=== PATIENT | male | born 1965 | race African-American/Black ===

== ENCOUNTER 2023-10-05 19:34 | Emergency (ER) | payer OTHER, MEDICAID, SELFPAY ==
--- NOTE | ~2023-10-05 | XR_ITS ---
EXAMINATION: XR CHEST CLINICAL INFORMATION: Left flank pain. Diminished lung sounds. Cough COMPARISON: None available. TECHNIQUE: 2 views of the chest were obtained. FINDINGS: No significant abnormality is noted involving the heart, lungs, mediastinum, bony thorax or soft tissues. XR/XR chest 2V IMPRESSION: Unremarkable examination.
--- NOTE | ~2023-10-05 | CT_ITS ---
EXAMINATION: CT ABDOMEN AND PELVIS WITHOUT CONTRAST CLINICAL INFORMATION: Left flank pain and dysuria COMPARISON: None available. TECHNIQUE: Multidetector volumetric imaging was performed from the superior aspect of the liver through the pubic symphysis. Sagittal and coronal reformatted images were obtained on the technologist's workstation. This CT examination was performed using dose optimization techniques as appropriate, variously including the following: *Automated exposure control *Adjustment of mA and/or kV according to patient size (this includes techniques or standardized protocols for targeted exams where dose is matched to indication/reason for exam; i.e. extremities or head) *Use of iterative reconstruction technique DLP: 507 mGy-cm FINDINGS: LUNG BASES: The visualized lung bases are unremarkable. Prominent retrocrural varices are noted on the right. LIVER, GALLBLADDER, AND BILIARY TREE: The liver is normal in size, shape, and attenuation. No focal hepatic lesion or biliary ductal dilatation is present. The gallbladder is contracted and contains multiple small gallstones without obvious pericholecystic inflammatory changes. PANCREAS: Unremarkable. SPLEEN: Unremarkable. ADRENAL GLANDS: Unremarkable. KIDNEYS AND URETERS: The kidneys are normal in size, shape, and attenuation. There is a nonobstructing calculus seen in the mid left kidney measuring about 3.5 mm in size. No hydronephrosis, hydroureter, or calculi seen. No perinephric stranding. A benign mid left renal 1.6 cm Bosniak class I renal cyst is noted which requires no additional imaging or follow up. No solid renal masses are seen. BLADDER: Unremarkable. GASTROINTESTINAL TRACT: There is a focal area of narrowing in the mid descending colon with some wall thickening and some mild pericolonic stranding. Although this may be due to collapse, a small nonobstructing apple core lesion cannot be entirely excluded. Colonoscopy or CT colonoscopy is recommended for further evaluation. There are scattered colonic diverticula without diverticulitis. The small and large bowel are otherwise unremarkable. The appendix is unremarkable. ABDOMINAL WALL: No significant hernia is appreciated. LYMPH NODES: No retroperitoneal lymphadenopathy. VASCULAR: Calcific atherosclerotic changes are present in the aorta and iliofemoral vessels. There is no evidence of an abdominal aortic aneurysm. PELVIC VISCERA: There is mild BPH. Seminal vesicles appear normal. OSSEOUS STRUCTURES: Marked degenerative changes present from L4 through S1. No bony destructive lesions CT/CT abdomen pelvis wo IV con IMPRESSION: 1. A cause for the patient's left flank pain and dysuria has not been found. 2. Cholelithiasis without cholecystitis. 3. Nonobstructing left renal calculus. 4. Focal area of narrowing in the mid descending colon with some wall thickening and some mild pericolonic stranding. Although this may be due to collapse, a small nonobstructing lesion cannot be entirely excluded. Colonoscopy or CT colonoscopy is recommended for further evaluation. 5. Mild BPH. 6. Marked degenerative changes L4-S1. Fleischner guidelines were followed.
[2023-10-05 19:41] VITALS: BP 150/90; PULSE 62; O2SAT 99
[2023-10-05 19:47] VITALS: BP 115/76; PULSE 69; RESP 18; TEMP 36.8; O2SAT 98; BMI 27.9
--- NOTE | 2023-10-05 19:53 | ED_ITS ---
HPI - Abdominal Pain General Chief Complaint: Abdominal Pain Stated Complaint: left side flank pain, hx of kidney stones, sec 21 Time Seen by Provider: 10/05/23 20:07 Source: patient Mode of arrival: ambulatory Limitations: language barrier (Ivorian-speaking machine engineer utilized) History of Present Illness HPI narrative: Patient is a 57-year-old male who presents emergency department via EMS on a section 21 from [facility] for evaluation of left flank pain for 6 days, reports a history of renal calculi and feeling similar pain in the past. He has underwent laser for treatment previously, states last time this occurred was 2 years ago at [facility]. Reports associated dysuria but denies hematuria. Pain at times is radiating into the left lower abdomen. He admits to having a chronic cough, does not feel as though it is particularly changed from baseline. Denies associated fevers, chills, nausea, vomiting, chest pain, shortness of breath, difficulty breathing, constipation, diarrhea Related Data Home Medications ?Medication ?Instructions ?Recorded ?Confirmed acetaminophen 325 mg tablet 650 mg PO Q4H PRN Pain (Scale 10/05/23 10/05/23 Score 1-3) benzocaine-menthol lozenges 1 min PO Q2H PRN Sore Throat 10/05/23 10/05/23 clonidine HCl 0.1 mg tablet 0.1 mg PO BID PRN ANXIETY 1ST LINE 10/05/23 10/05/23 hydroxyzine pamoate 50 mg capsule 50 mg PO Q6H PRN anxiety 10/05/23 10/05/23 lisinopril 5 mg tablet 5 mg PO DAILY 10/05/23 10/05/23 nicotine (polacrilex) 2 mg gum 2 mg buccal Q2H PRN Nicotine 10/05/23 10/05/23 Cravings pantoprazole 40 mg tablet,delayed 40 mg PO DAILY 10/05/23 10/05/23 release prazosin 1 mg capsule 1 mg PO BEDTIME 10/05/23 10/05/23 quetiapine 50 mg tablet 50 mg PO BID PRN Agitation 10/05/23 10/05/23 trazodone 50 mg tablet 50 mg PO BEDTIME 10/05/23 10/05/23 Allergies Allergy/AdvReac Type Severity Reaction Status Date / Time No Known Allergies Allergy Verified 10/05/23 19:50 Review of Systems Review of Systems Yes all other systems are reviewed and are negative [facility] Past Medical History Attestation statement: The following information was validated with the patient. Source: old records reviewed Social History Social History Alcohol intake: current Alcohol type: hard liquor Smoked in Last 30 Days: Yes Use of substances other than those prescribed or required for medical reasons: Yes Substance Use Type: Crack/Cocaine Substance Use Frequency: Chronic Longstanding Advance Directives: No Advance Directives Information Provided: No Physical Exam ED Vital Signs: Vital Signs - 24 hr 10/05/23 19:47 10/05/23 20:04 10/05/23 22:58 Temperature 98.2 F 97.6 F 98.7 F Pulse Rate 69 66 57 Respiratory Rate 18 14 16 Blood Pressure 115/76 115/76 147/82 H Pulse Oximetry 98 98 98 Oxygen Delivery Method Room Air Room Air Room Air 10/06/23 01:06 Temperature 97.7 F Pulse Rate 55 Respiratory Rate 14 Blood Pressure 143/89 H Pulse Oximetry 99 Oxygen Delivery Method Room Air BMI result Body Mass Index 27.9 Appearance: Alert.?Oriented to person, place and time. No acute distress.?Normal affect. Eyes: Pupils equal, round and reactive to light.? ENT: Pharynx normal.?? Neck: Normal inspection.? Neck supple.?? CVS: Heart sounds normal. Normal heart rate and rhythm.? Pulses normal.?? Respiratory: No respiratory distress.? Lung sounds diminished on the left, clear to auscultation throughout on the right Abdomen: Soft a with left lower quadrant tenderness on palpation. Left CVA tenderness. Normoactive bowel sounds. Skin: Skin warm and dry.? Normal skin color.? Extremities: No lower extremity edema.? No calf ttp? Neuro: Moves all extremities spontaneously. Sensation intact bilaterally. Ambulates with normal steady gait. Course Reevaluation(s) Reevaluation #1: CBC is without leukocytosis, significant anemia. Urinalysis is without evidence of infection or microscopic hematuria. CT of the abdomen and pelvis reveals nonobstructing left renal calculi, no evidence of ureteral calculi or hydronephrosis, there is finding of focal narrowing in the mid descending colon and wall thickening with mild pericolonic stranding, per Radiology may be due to collapse though a small nonobstructing lesion can not be excluded recommendation for further evaluation. I reviewed this case with ED attending, Dr. Jasmine, patient does require colonoscopy, which can be done on an outpatient setting. I reviewed these findings with patient in the use of the machine engineer. He verbalized understanding of this. He does state that he was incarcerated last year, believes he was let free approximately 1 year ago. He reports a 1 month time span after he was released he lost approximately 40 lb unintentionally. He does admit that he has been having ongoing issues over the past year with constipation which does improve with the use of Colace daily. He does admit that since he has been at [facility] over the past week he has not been receiving the Colace and at this time does endorse worsening of his constipation. Time: 23:12 Medical Decision Making Medical Decision Making [facility] Narrative: Patient is a 57-year-old male with past medical history of major depressive disorder, anxiety, hypertension, GERD, nephrolithiasis presenting to emergency department for evaluation of left flank pain as per HPI. Has notable left CVA tenderness upon evaluation, concern for acute renal pathology, however on exam does have diminished lung sounds throughout on the left when compared to the right, given chronic cough, concern for possible pulmonary etiology as well therefore CXR will be obtained in addition to evaluate for leukocytosis/ anemia, CMP and lipase to evaluate for abnormal electrolytes /abnormal renal function/ abnormal hepatic/biliary function, and Urinalysis. Differential Diagnosis Differential Diagnoses: The differential diagnosis associated with the presentation includes (Nephrolithiasis, ureteral calculi, hydronephrosis, pyelonephritis, urinary tract infection, pneumonia, diverticulitis,) Admission/Observation Consideration of admission/observation: Escalation of care including admission/observation considered Lab Data [facility] Lab Attestation statement: I reviewed the patient's lab results. (See course narrative) 10/05/23 20:08 10/05/23 22:12 Labs: Lab Results 10/05/23 10/05/23 10/05/23 Range/Units 20:07 20:08 22:12 WBC 8.3 (4.8-10.8) X10*3/uL RBC 4.64 (4.60-5.80) X10*6/uL Hgb 14.3 (14.0-18.0) g/dl Hct 41.8 L (42.0-52.0) % MCV 90.1 (80.0-98.0) fL MCH 30.8 (27.0-33.0) pg MCHC 34.2 (31.0-36.0) g/dl RDW 13.5 (11.0-16.0) % Plt Count 214 (160-400) X10*3/uL MPV 11.2 (9.4-12.4) fL Immature Gran % (Auto) 0.5 H (0.0-0.4) % Neut % (Auto) 43.3 L (45-73) % Lymph % (Auto) 44.6 H (20-40) % [place] % (Auto) 9.7 (2-11) % Eos % (Auto) 1.2 (0-4) % Baso % (Auto) 0.7 (0-2) % Lymph # (Auto) 3.7 (1.2-4.9) X10*3/uL [place] # (Auto) 0.8 (0.1-1.2) X10*3/uL Eos # (Auto) 0.1 (0.0-0.4) X10*3/uL Baso # (Auto) 0.1 (0.0-0.2) X10*3/uL Abs Immat Gran (auto) 0.04 H (0.00-0.03) X10*3/uL Absolute Neuts (auto) 3.6 (2.0-8.3) x10*3/uL Absolute Nucleated RBC 0.000 (0.0-0.012) X10*3/uL Nucleated RBC % (auto) 0.0 (0.0-0.2) /100WBC PT 12.2 (11.1-13.3) SEC INR 1.0 (0.9-1.1) Sodium 137 (135-145) mmol/L Potassium 4.3 (3.3-5.1) mmol/L Chloride 107 (96-108) mmol/L Carbon Dioxide 22 (22-29) mmol/L Anion Gap 12 (12-20) BUN 17 H (9-16) mg/dL Creatinine 0.99 (0.5-1.4) mg/dL Estim Creat Clear Calc 87.5 Estimated GFR > 60 Random Glucose 124 H (60-115) mg/dL Calcium 9.4 (8.4-10.2) mg/dL Magnesium 1.9 (1.6-2.6) mg/dL Total Bilirubin 0.3 (0.0-1.0) mg/dL AST 43 H (5-37) U/L ALT 37 (0-40) U/L Alkaline Phosphatase 112 (39-117) U/L Total Protein 7.3 (6.5-8.0) g/dL Albumin 3.5 (3.5-5.0) g/dL Lipase 18 (8-78) U/L Urine Color Yellow Urine Appearance Clear Urine pH 6.5 (5.0-9.0) Ur Specific [place] 1.020 (1.005-1.025) Urine Protein Negative (Neg-Trace) mg/dL Urine Glucose (UA) Negative (Negative) mg/dL Urine Ketones Negative (Negative) mg/dL Urine Blood Negative (Negative) Urine Nitrite Negative (Negative) Ur Leukocyte Esterase Negative (Negative) Influenza Type A (PCR) NEGATIVE (Negative) Influenza Type B (PCR) NEGATIVE (Negative) RSV RNA Qual (PCR) NEGATIVE (Negative) SARS-CoV-2 RNA (RT-PCR) NEGATIVE (Negative) Radiology Impression Discussion of test interpretation with radiology: I have reviewed the radiologist's reading. Independent Historian Clinical information obtained from an independent historian. History obtained from or confirmed by: EMS External Record Review External record reviewed: Outpatient record Medications Administered Discontinued Medications Generic Name Dose Route Start Last Admin Trade Name Freq PRN Reason Stop Dose Admin Sodium Chloride 1,000 mls @ 999 mls/hr 10/05/23 20:00 10/05/23 21:27 Ns IV 10/05/23 21:00 Infused .Q1H1M MARLENY Infusion Ketorolac Tromethamine 30 mg 10/05/23 19:52 10/05/23 20:09 Ketorolac Tromethamine 30 Mg/Ml Vial IVPUSH 10/05/23 19:53 30 mg ONCE ONE Administration Morphine Sulfate 4 mg 10/05/23 22:19 10/05/23 22:25 Morphine Sulfate 4 Mg/Ml Cartridge IVPUSH 10/05/23 22:20 4 mg ONCE ONE Administration Protocol Critical Care Time Critical Care Time Critical Care Time: Yes Total Critical Care Time: 35 Attestation: I personally attest to this critical care time spent taking care of the patient exclusive of all other billable procedures was approximately 35 minutes including initial evaluation of patient, ordering tests, pain medication management,, medical consultation, documentation, re-evaluation. Discharge Plan Discharge Clinical Impression: Abdominal pain Patient Disposition: Xfer Psychiatric Hosp Transfer Details: Rosa Maria Additional Instructions: As discussed, in your colon on the left side of your abdomen there are abnormal findings on the CT scan. This is around the area where your pain is currently present. It is important that you follow-up with Gastroenterology, please contact their office first thing tomorrow morning to arrange for a new patient visit and discuss colonoscopy. Please take docusate 100 mg by mouth daily Prescriptions: No Action clonidine HCl 0.1 mg Tablet 0.1 mg PO BID PRN (Reason: ANXIETY 1ST LINE) acetaminophen 325 mg Tablet 650 mg PO Q4H PRN (Reason: Pain (Scale Score 1-3)) trazodone 50 mg Tablet 50 mg PO BEDTIME nicotine (polacrilex) 2 mg Gum 2 mg BUCCAL Q2H PRN (Reason: Nicotine Cravings) prazosin 1 mg Capsule 1 mg PO BEDTIME hydroxyzine pamoate 50 mg capsule 50 mg PO Q6H PRN (Reason: anxiety) pantoprazole 40 mg tablet,delayed release (DR/EC) 40 mg PO DAILY lisinopril 5 mg tablet 5 mg PO DAILY benzocaine-menthol Lozenge 1 min PO Q2H PRN (Reason: Sore Throat) quetiapine 50 mg tablet 50 mg PO BID PRN (Reason: Agitation) Referrals: Demetra Banegas MD [Physician] - Print Language: Ivorian
[2023-10-05 20:04] VITALS: BP 115/76; PULSE 66; RESP 14; TEMP 36.4; O2SAT 98
[2023-10-05] MEDS: Ketorolac Tromethamine 30 MG/ML VIAL IVPUSH (20:09)
[2023-10-05] MEDS: 0.9 % Sodium Chloride 1,000 ML 999 ML IV (20:10)
[2023-10-05 20:15] LABS: MANUAL DIFF FLAG NO
[2023-10-05 20:17] LABS: Basophils Absolute Auto 0.1 X10*3/uL (0.0-0.2); Basophils Percent Auto 0.7 % (0-2); Eosinophils Absolute Auto 0.1 X10*3/uL (0.0-0.4); Eosinophils Percent Auto 1.2 % (0-4); Hematocrit 41.8 % (42.0-52.0); Hemoglobin 14.3 g/dl (14.0-18.0); Imm Gran Abs Auto 0.04 X10*3/uL (0.00-0.03); Imm Gran Pct Auto 0.5 % (0.0-0.4); Lymphocytes Absolute Auto 3.7 X10*3/uL (1.2-4.9); Lymphocytes Percent Auto 44.6 % (20-40); Mean Corpuscular HGB Conc 34.2 g/dl (31.0-36.0); Mean Corpuscular Hemoglobin 30.8 pg (27.0-33.0); Mean Corpuscular Volume 90.1 fL (80.0-98.0); Mean Platelet Volume 11.2 fL (9.4-12.4); Monocytes Absolute Auto 0.8 X10*3/uL (0.1-1.2); Monocytes Percent Auto 9.7 % (2-11); Neutrophils Absolute Auto 3.6 x10*3/uL (2.0-8.3); Neutrophils Percent Auto 43.3 % (45-73); Platelet Count 214 X10*3/uL (160-400); Red Blood Count 4.64 X10*6/uL (4.60-5.80); Red Cell Distribution Width 13.5 % (11.0-16.0); White Blood Count 8.3 X10*3/uL (4.8-10.8)
[2023-10-05 20:18] LABS: Appearance Urine Clear; Color Urine Yellow; Glucose Urine UA Negative (Negative); Leukocyte Esterase Urine Negative (Negative); Nitrite Urine Negative (Negative); PH 6.5 (5.0-9.0); Urine Blood Negative (Negative); Urine Ketones Negative (Negative); Urine Protein Negative (Neg-Trace)
[2023-10-05 20:31] LABS: Prothrombin Time 12.2 SEC (11.1-13.3)
[2023-10-05 20:52] LABS: Influenza A PCR NEGATIVE (Negative); Influenza B PCR NEGATIVE (Negative); Resp Syncy Virus RNA Qual PCR NEGATIVE (Negative); SARS COV2 PCR INHOUSE NEGATIVE (Negative)
--- NOTE | 2023-10-05 21:55 | PHA.MEDREC ---
Pharmacy Consult ? Medication Reconciliation Pharmacy has completed the medication reconciliation. Patient from [facility]. Utilized the active medication list. Laisha Villagran, ImaniD
[2023-10-05] MEDS: Morphine Sulfate 4 MG/ML CARTRIDGE IVPUSH (22:25)
[2023-10-05 22:38] LABS: Alanine Aminotransferase 37 U/L (0-40); Albumin Level 3.5 g/dL (3.5-5.0); Alkaline Phosphatase 112 U/L (39-117); Anion Gap 12 (12-20); Aspartate Amino Transferase 43 U/L (5-37); Bilirubin Total 0.3 mg/dL (0.0-1.0); Blood Urea Nitrogen 17 mg/dL (9-16); Calcium 9.4 mg/dL (8.4-10.2); Carbon Dioxide 22 mmol/L (22-29); Chloride 107 mmol/L (96-108); Creatinine Clr Calc Pharmacy 87.5; Estimated Glomerular Filt Rate > 60; Glucose Random 124 mg/dL (60-115); Lipase 18 U/L (8-78); Magnesium 1.9 mg/dL (1.6-2.6); Potassium 4.3 mmol/L (3.3-5.1); Sodium 137 mmol/L (135-145); Total Protein 7.3 g/dL (6.5-8.0)
[2023-10-05 22:58] VITALS: BP 147/82; PULSE 57; RESP 16; TEMP 37.1; O2SAT 98
[2023-10-06 01:06] VITALS: BP 143/89; PULSE 55; RESP 14; TEMP 36.5; O2SAT 99
[2023-10-06 01:36] VITALS: BP 143/89; PULSE 55; RESP 14; TEMP 36.6; O2SAT 99
== END 2023-10-06 01:41 | disposition home or self-care (01) ==
PROVIDERS: Nurse Practitioner Family; Emergency Provider Emergency Medicine Emergency Medical Services
DX: R10.9 Unspecified abdominal pain (principal); I10 Essential (primary) hypertension; Z87.442 Personal history of urinary calculi; Z03.818 Encounter for observation for suspected exposure to other biological agents ruled out
CPT/HCPCS: 0241U; 36415; 71046; 74176; 80053; 81003; 83690; 83735; 85025; 85610; 96361; 96374; 96375; 99284; 99285; J1885; J2270

== ENCOUNTER 2023-10-29 18:20 | Inpatient (IN) | payer OTHER, MEDICAID, SELFPAY ==
[2023-10-29 19:18] VITALS: BP 162/88; PULSE 65; RESP 18; TEMP 36.9; O2SAT 98
[2023-10-29] MEDS: Thiamine HCL 100 MG TABLET 50 MG PO (21:47)
[2023-10-29] MEDS: Multivitamin TABLET 1 TAB PO (21:47)
[2023-10-29] MEDS: Folic Acid 1 MG TABLET PO (21:47)
[2023-10-29] MEDS: Ibuprofen 400 MG TABLET PO (21:48)
[2023-10-29] MEDS: traZODone HCL 50 MG TABLET PO (21:48)
[2023-10-29] MEDS: LORazepam 1 MG TABLET 2 MG PO (21:49)
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
--- NOTE | 2023-10-30 06:58 | P.CONHOSP_ITS ---
History of Present Illness Data of Consult Service Date: 10/30/23 Requesting physician: Pamela Contreras Primary Care Provider: REBECCA Piper HPI Reason for consult: medical H&P 57 year old male with history of gerd, htn, hepatic cirrhosis, mood disorder admitted to psychiatry with consult placed to hospitalist service for medical H&P. Pt is reporting heartburn reporting he missed several doses of his ppi. He reported drinking 6 beers daily with 12-15 nips daily, last consumed 4 days ago. No n/v, confusion, headache, ah/vh, agitation (except after negative interaction with another patient). NO evidence of acute withdrawal. He also reports inh crack cocaine use. Smokes 1ppd but not interested in NRT. He reports remove history of IVDA with history of hep c (which he reports cleared but was not treated). Agrees to checking for hep c and hiv. No other complaints at this time. Review of Systems 2 Review of Systems: General: No fevers, malaise, unintentional weight loss HEENT: No blurred vision, diplopia. No sore throat, nasal congestion, rhinorrhea, sinus pain, ear pain Cardiovascular: No chest pain, palpitations, or leg edema Respiratory: No shortness of breath, wheezing, cough GI: +heartburn. No abdominal pain, nausea, vomiting, diarrhea, constipation, melena, hematochezia : No dysuria, hematuria, increased urinary frequency, decreased urinary output MSK: No myalgia, back pain Neuro: No headaches, weakness, paresthesias Skin: No rashes or lesions [facility] Medical History (Updated 10/30/23 @ 14:42 by REBECCA Deleon) History of hepatitis C Hepatic cirrhosis MDD (major depressive disorder), recurrent episode, severe Cocaine use disorder Alcohol use disorder History of intravenous drug abuse GERD (gastroesophageal reflux disease) HTN (hypertension) Social History Household Members: None Housing: Homeless Do you presently have visiting nurse or other home services: No Alcohol intake: current Alcohol type: hard liquor Patient Tobacco Use Status: Current everyday Tobacco user Tobacco use type: Cigarette Cigarette Packs Per Day: 1 Cigarettes Per Day: 20.0 Years Smoked: unknown Smoked in Last 30 Days: Yes e-Cigarette/Vaping Use: Never Used Frequency of e-Cigarette/Vaping Use: daily Patient Interested in Nicotine Replacement: No Patient Given Instructions on How to Stop Smoking: Yes (Pt does not want to stop) Date Education Initiated: 10/29/23 Second Hand Smoke Exposure: No Use of substances other than those prescribed or required for medical reasons: Yes Substance Use Type: Crack/Cocaine and Heroin Substance Use Frequency: Weekly Last Used Substance: Just Prior to Admission Last Used Substance Other:: cocaine, heroin Currently Displaying Signs/Symptoms of Drug Intoxication Withdrawal: No Any prior treatment program specific to substance use: Yes (2x at [place]) Advance Directives: No Advance Directives Information Provided: No Do you have thoughts of harming others: None Do you have a plan to hurt others: No Plan Recently lost weight without trying: No Nutrition Risks: No Nutritional Risk Meds Allergies Allergy/AdvReac Type Severity Reaction Status Date / Time No Known Allergies Allergy Verified 10/05/23 19:50 Active Medications: Current Medications Acetaminophen (Acetaminophen 325 Mg Tablet) 650 mg PO Q6H PRN PRN Reason: Headache/Pain Mild Scale (1-3) Al Hydroxide/Mg Hydroxide (Magnesium Hydrox/Alum Hydrox 30 Ml Oral.Susp) 30 ml PO Q6H PRN PRN Reason: Heartburn/Nausea Folic Acid (Folic Acid 1 Mg Tablet) 1 mg PO DAILY [facility] Last Admin: 10/29/23 21:47 Dose: 1 mg Hydroxyzine HCl (Hydroxyzine Hcl 25 Mg Tablet) 25 mg PO Q6H PRN PRN Reason: Anxiety Ibuprofen (Ibuprofen 400 Mg Tablet) 400 mg PO Q6H PRN PRN Reason: Pain, Moderate(Pain Scale 4-6) Last Admin: 10/29/23 21:48 Dose: 400 mg Lorazepam (Lorazepam 1 Mg Tablet) 1 mg PO Q4H PRN PRN Reason: CIWA 6-12 Lorazepam (Lorazepam 1 Mg Tablet) 2 mg PO Q4H PRN PRN Reason: CIWA 13 and above Last Admin: 10/29/23 21:49 Dose: 2 mg Magnesium Hydroxide (Milk Of Magnesia 30 Ml Oral.Susp) 30 ml PO DAILY PRN PRN Reason: Constipation Multivitamins/Vitamin C (Multivitamin Tablet) 1 tab PO DAILY [facility] Last Admin: 10/29/23 21:47 Dose: 1 tab Nicotine Polacrilex (Nicotine Polacrilex 2 Mg Gum) 4 mg BUCCAL Q2H PRN PRN Reason: Nicotine Cravings Thiamine HCl (Thiamine Hcl 100 Mg Tablet) 50 mg PO DAILY MARLENY Last Admin: 10/29/23 21:47 Dose: 50 mg Trazodone HCl (Trazodone Hcl 50 Mg Tablet) 50 mg PO BEDTIME MRX1 PRN PRN Reason: Insomnia Last Admin: 10/29/23 21:48 Dose: 50 mg Home Medications ?Medication ?Instructions ?Recorded ?Confirmed ?Last Taken ?Type hydroxyzine pamoate 50 mg capsule 50 mg PO Q6H PRN anxiety 10/05/23 10/30/23 Unknown History lisinopril 5 mg tablet 5 mg PO DAILY 10/05/23 10/30/23 Unknown History prazosin 1 mg capsule 1 mg PO BEDTIME 10/05/23 10/30/23 Unknown History quetiapine 50 mg tablet 50 mg PO BID PRN Agitation 10/05/23 10/30/23 Unknown History clonidine HCl 0.1 mg tablet 0.1 mg PO BID PRN Anxiety 10/30/23 10/30/23 Unknown History pantoprazole 40 mg PO DAILY 10/30/23 10/30/23 Unknown History trazodone 100 mg tablet 100 mg PO BEDTIME 10/30/23 10/30/23 Unknown History Physical Exam 2 Vital Signs and Narrative: Vital Signs: Last Vital Signs Temp 98.4 F 10/29/23 19:18 Pulse 65 10/29/23 19:18 Resp 18 10/29/23 19:18 BP 162/88 H 10/29/23 19:18 Pulse Ox 98 10/29/23 19:18 O2 Del Method Room Air 10/29/23 19:18 Constitutional - Awake and Alert, No apparent distress Eyes - PERRLA, EOMI Cardiovascular - S1S2, RRR, No edema Respiratory - Normal lung expansion, Normal respiratory effort, No respiratory distress, CTA bilaterally Gastrointestinal - NT / ND; +BS; No rebound or guarding Extremities - no calf tenderness bilaterally, no swelling Musculoskeletal - Normal inspection, normal ROM Skin - Warm/Dry Neurological - Alert & oriented x3, CN II-XII in tact, 5/5 strength BUE and BLE Psychological - Appropriate affect Results Labs 10/30/23 07:35 Assessment and Plan (1) Routine medical exam: Status: Acute Plan 57 year old male with history of gerd, htn, hepatic cirrhosis, mood disorder admitted to psychiatry with consult placed to hospitalist service for medical H&P. #Mood disorder -plan per psychiatry #substance use -plan per psychiatry #Alcohol use disorder -no evidence of withdrawal, last drink wednesday -plan per psychiatry #H/o ivda and hx hepatitis c -pt agreeable to testing for hiv/hep c -hep b/c ab ordered. hep c viral load ordered. If viral load positive, will need OUTPT follow up- not treated inpt -check hiv ab #HTN -bp controlled -continue lisinopril #GERD -ppi #Hepatic cirrhosis -compensated, outpt follow up Thank you for allowing me to participate in this consult. Signing off at this time. Please do not hesitate to call for further questions or for any acute medical issues
[2023-10-30 07:59] VITALS: BP 132/86; PULSE 72; RESP 16; TEMP 36.9; O2SAT 99
[2023-10-30 08:37] LABS: Alanine Aminotransferase 31 U/L (0-40); Albumin Level 3.7 g/dL (3.5-5.0); Alkaline Phosphatase 78 U/L (39-117); Anion Gap 15 (12-20); Aspartate Amino Transferase 42 U/L (5-37); Bilirubin Total 0.7 mg/dL (0.0-1.0); Blood Urea Nitrogen 14 mg/dL (9-16); Calcium 9.3 mg/dL (8.4-10.2); Carbon Dioxide 25 mmol/L (22-29); Chloride 105 mmol/L (96-108); Cholesterol 162 mg/dL (<200); Estimated Glomerular Filt Rate > 60; Glucose Fasting 112 mg/dL (60-99); HDL Cholesterol 51 mg/dL (>40); LDL Cholesterol Calculated 89 mg/dL (<100); Potassium 4.1 mmol/L (3.3-5.1); Sodium 141 mmol/L (135-145); Total Protein 7.8 g/dL (6.5-8.0); Triglycerides 114 mg/dL (<150)
[2023-10-30] MEDS: Multivitamin TABLET 1 TAB PO (08:59)
[2023-10-30] MEDS: Folic Acid 1 MG TABLET PO (08:59)
[2023-10-30] MEDS: Thiamine HCL 100 MG TABLET 50 MG PO (09:00)
[2023-10-30] MEDS: Ibuprofen 400 MG TABLET PO (09:19)
[2023-10-30] MEDS: LORazepam 1 MG TABLET 2 MG PO ×2 (09:20→13:11)
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
[2023-10-30] MEDS: Magnesium Hydrox/Alum Hydrox 30 ML ORAL.SUSP PO (13:12)
[2023-10-30] MEDS: Lidocaine 4 % Patch ADH..PATCH 1 PATCH TRANSDERMA (14:49)
[2023-10-30 21:15] VITALS: BP 120/77; PULSE 60; RESP 16; TEMP 36.8; O2SAT 98
[2023-10-30] MEDS: QUEtiapine Fumarate 50 MG TABLET PO (21:22)
[2023-10-30] MEDS: traZODone HCL 100 MG TABLET PO (21:22)
[2023-10-30] MEDS: LORazepam 1 MG TABLET PO (21:22)
[2023-10-30] MEDS: Prazosin HCL 1 MG CAPSULE PO (21:22)
[2023-10-31] MEDS: cloNIDine HCL 0.1 MG TABLET PO (00:41)
[2023-10-31] MEDS: traZODone HCL 50 MG TABLET PO (00:54)
[2023-10-31] MEDS: LORazepam 1 MG TABLET PO ×4 (01:33→20:14)
--- NOTE | 2023-10-31 08:34 | HO.PSYCHPN ---
Subjective Subjective Date of Service: 10/31/23 Reason For Visit: Unspecified depressive and anxiety Subjective Notes: Conditional Voluntary Interim History: Reviewed with Dr. Quiñones. tip scourer and RNKrysta, present. Pt reports feeling a little better today; pt stated, it's hard for me to go from having a job and having somewhere to live, to nothing . Pt continues to report suicidal ideation; when asked about homicidal ideation towards his family, pt stated, I don't know yet . Pt denies VH/AH. Medication Compliance: Yes Side effects from medications: No Attending Groups: No Review of Systems Constitutional: Reports as per HPI Eyes: Reports as per HPI Reports as per HPI Cardiovascular: Reports as per HPI Respiratory: Reports as per HPI Gastrointestinal: Reports as per HPI Genitourinary: Reports as per HPI Musculoskeletal: Reports as per HPI Skin/Breast: Reports as per HPI Reports as per HPI Psychiatric: Reports as per HPI Endocrine: Reports as per HPI Hematologic/Lymphatic: Reports as per HPI Allergic/Immunologic: Reports as per HPI Mental Status Exam Mental Status Exam Narrative: Pt is alert and oriented; behavior is cooperative and calm; dressed in casual attire; mood is described as depressed and anxious ; eye contact appropriate; Speech is normal rate, volume and prosody and not pressured; thought process is organized and goal directed; Thought content is on tx; +SI, +HI, VH/AH. Diagnostics Vital Signs (24Hr): Vital Signs - 24 hr 10/30/23 21:15 Temperature 98.2 F Pulse Rate 60 Respiratory Rate 16 Blood Pressure 120/77 Pulse Oximetry 98 Oxygen Delivery Method Room Air Labs 10/30/23 07:35 Labs: Laboratory Results - last 48 hr 10/30/23 07:35 Sodium 141 Potassium 4.1 Chloride 105 Carbon Dioxide 25 Anion Gap 15 BUN 14 Creatinine 0.89 Estim Creat Clear Calc TNP Estimated GFR > 60 Fasting Glucose 112 H Calcium 9.3 Total Bilirubin 0.7 AST 42 H ALT 31 Alkaline Phosphatase 78 Total Protein 7.8 Albumin 3.7 Triglycerides 114 Cholesterol 162 LDL Cholesterol, Calc 89 HDL Cholesterol 51 Medications Medications Current Medications Acetaminophen (Acetaminophen 325 Mg Tablet) 650 mg PO Q6H PRN PRN Reason: Headache/Pain Mild Scale (1-3) Al Hydroxide/Mg Hydroxide (Magnesium Hydrox/Alum Hydrox 30 Ml Oral.Susp) 30 ml PO Q6H PRN PRN Reason: Heartburn/Nausea Last Admin: 10/30/23 13:12 Dose: 30 ml Calcium Carbonate (Calcium Carbonate 750 Mg Tab.Chew) 750 mg PO Q4H PRN PRN Reason: Heartburn Clonidine HCl (Clonidine Hcl 0.1 Mg Tablet) 0.1 mg PO BID PRN; Protocol PRN Reason: Anxiety Last Admin: 10/31/23 00:41 Dose: 0.1 mg Folic Acid (Folic Acid 1 Mg Tablet) 1 mg PO DAILY [facility] Last Admin: 10/30/23 08:59 Dose: 1 mg Hydroxyzine HCl (Hydroxyzine Hcl 25 Mg Tablet) 25 mg PO Q6H PRN PRN Reason: Anxiety Ibuprofen (Ibuprofen 400 Mg Tablet) 400 mg PO Q6H PRN PRN Reason: Pain, Moderate(Pain Scale 4-6) Last Admin: 10/30/23 09:19 Dose: 400 mg Lidocaine (Lidocaine 4 % Patch Adh..Patch) 1 patch TRANSDERMA DAILY [facility]; Protocol Last Admin: 10/30/23 14:49 Dose: 1 patch Lisinopril (Lisinopril 5 Mg Tablet) 5 mg PO DAILY [facility]; Protocol Lorazepam (Lorazepam 1 Mg Tablet) 1 mg PO Q4H PRN PRN Reason: CIWA 6-12 Last Admin: 10/31/23 01:33 Dose: 1 mg Lorazepam (Lorazepam 1 Mg Tablet) 2 mg PO Q4H PRN PRN Reason: CIWA 13 and above Last Admin: 10/30/23 13:11 Dose: 2 mg Magnesium Hydroxide (Milk Of Magnesia 30 Ml Oral.Susp) 30 ml PO DAILY PRN PRN Reason: Constipation Multivitamins/Vitamin C (Multivitamin Tablet) 1 tab PO DAILY [facility] Last Admin: 10/30/23 08:59 Dose: 1 tab Nicotine Polacrilex (Nicotine Polacrilex 2 Mg Gum) 4 mg BUCCAL Q2H PRN PRN Reason: Nicotine Cravings Omeprazole (Omeprazole 20 Mg Capsule.Dr) 20 mg PO DAILY@0630 [facility] Prazosin HCl (Prazosin Hcl 1 Mg Capsule) 1 mg PO BEDTIME [facility]; Protocol Last Admin: 10/30/23 21:22 Dose: 1 mg Quetiapine Fumarate (Quetiapine Fumarate 50 Mg Tablet) 50 mg PO BID PRN PRN Reason: Agitation Last Admin: 10/30/23 21:22 Dose: 50 mg Thiamine HCl (Thiamine Hcl 100 Mg Tablet) 50 mg PO DAILY [facility] Last Admin: 10/30/23 09:00 Dose: 50 mg Trazodone HCl (Trazodone Hcl 100 Mg Tablet) 100 mg PO BEDTIME [facility] Last Admin: 10/30/23 21:22 Dose: 100 mg Allergies Allergies Allergy/AdvReac Type Severity Reaction Status Date / Time No Known Allergies Allergy Verified 10/05/23 19:50 Assessment & Plan Assessment & Plan (1) MDD (major depressive disorder), recurrent episode, severe: Status: Acute Code(s): F33.2 - Major depressive disorder, recurrent severe without psychotic features (2) Cocaine use disorder: Status: Acute Code(s): F14.10 - Cocaine abuse, uncomplicated (3) Alcohol use disorder: Status: Acute Code(s): F10.90 - Alcohol use, unspecified, uncomplicated Plan Patient is a 57 year old male with hx of MDD, cocaine use d/o and alcohol use d/o who was brought to ER secondary to being found in the bushes intoxicated near [facility]. Plan: CV 15 minute safety checks Continue home medications CIWA consult to addiction medicine referral to outpatient substance abuse program referral to outpatient psychiatric providers discharge planning 10/30: tip scourer and RNKrysta, present. Pt reports feeling a little better today; pt stated, it's hard for me to go from having a job and having somewhere to live, to nothing . Pt continues to report suicidal ideation; when asked about homicidal ideation towards his family, pt stated, I don't know yet . Pt denies VH/AH. pt continues to score on CIWA. Patient educated on: diagnosis, medication risk/benefits, substance abuse and therapeutic strategies Informed Consent: understands Reason for continued inpatient stay Substantial Risk for: harm to self, harm to others and med/psych decompensation Time Spent With Patient Time: Total time managing care of this patient today _20___ minutes.
[2023-10-31] MEDS: Thiamine HCL 100 MG TABLET 50 MG PO (08:49)
[2023-10-31] MEDS: Omeprazole 20 MG CAPSULE.DR PO (08:49)
[2023-10-31] MEDS: Multivitamin TABLET 1 TAB PO (08:50)
[2023-10-31 08:51] VITALS: BP 134/85
[2023-10-31] MEDS: lisinopriL 5 MG TABLET PO (08:51)
[2023-10-31] MEDS: Folic Acid 1 MG TABLET PO (08:51)
[2023-10-31 09:07] VITALS: BP 134/85; PULSE 69; RESP 16; TEMP 36.3; O2SAT 99
[2023-10-31] MEDS: Lidocaine 4 % Patch ADH..PATCH 1 PATCH TRANSDERMA (09:25)
[2023-10-31] MEDS: Ibuprofen 600 MG TABLET PO ×2 (09:52→20:14)
[2023-10-31 20:00] VITALS: BP 155/88; PULSE 55; RESP 16; TEMP 36.6; O2SAT 98
[2023-10-31] MEDS: Prazosin HCL 1 MG CAPSULE PO (20:18)
[2023-10-31] MEDS: traZODone HCL 100 MG TABLET PO (20:18)
[2023-10-31] MEDS: QUEtiapine Fumarate 50 MG TABLET PO (20:18)
--- NOTE | 2023-11-01 05:07 | PC.NURSE ---
Patient sleeping at time of CIWA, respirations were 14. No signs of sweating. Patient breathing was free and easy with no signs of distress.
[2023-11-01 07:37] VITALS: BP 159/74; PULSE 57; RESP 14; TEMP 36; O2SAT 97
[2023-11-01] MEDS: Multivitamin TABLET 1 TAB PO (08:35)
[2023-11-01] MEDS: Omeprazole 20 MG CAPSULE.DR PO (08:35)
[2023-11-01 08:36] VITALS: BP 159/74
[2023-11-01] MEDS: Thiamine HCL 100 MG TABLET 50 MG PO (08:36)
[2023-11-01] MEDS: lisinopriL 5 MG TABLET PO (08:36)
[2023-11-01] MEDS: Folic Acid 1 MG TABLET PO (08:36)
[2023-11-01] MEDS: Ibuprofen 600 MG TABLET PO ×2 (09:03→20:33)
[2023-11-01 09:11] LABS: HBc Num1 5.15 S/CO (0.00-0.79); HBsAGNum1 0.24 S/CO (0.00-0.99); HIV AB/AG Nonreactive (Nonreactive); HIV Num 1 0.05 S/CO (0.00-0.99); Hepatitis B Surface Antigen Negative (Negative); ~HepC Num1 16.45 S/CO (0.00-0.79); ~Hepatitis B Surface Antibody NONREACTIVE (Nonreactive); ~Hepatitis C Antibody Reactive (Nonreactive)
[2023-11-01 10:26] LABS: HBc Num2 5.32 S/CO; HBc Num3 5.22 S/CO; Hepatitis B Core Antibody Reactive (Nonreactive)
[2023-11-01 11:22] LABS: Adenovirus PCR Not Detected (Not Detect.); Bordetella parapertussis PCR Not Detected (Not Detect.); Bordetella pertussis PCR Not Detected (Not Detect.); Chlamydia pneumoniae PCR Not Detected (Not Detect.); Coronavirus 229E PCR Not Detected (Not Detect.); Coronavirus HKU1 PCR Not Detected (Not Detect.); Coronavirus NL63 PCR Not Detected (Not Detect.); Coronavirus OC43 PCR Not Detected (Not Detect.); Human metapneumovirus PCR Not Detected (Not Detect.); Influenza A PCR Not Detected (Not Detect.); Influenza B PCR Not Detected (Not Detect.); Mycoplasma pneumoniae PCR Not Detected (Not Detect.); Parainfluenza 1 PCR Not Detected (Not Detect.); Parainfluenza 2 PCR Not Detected (Not Detect.); Parainfluenza 3 PCR Not Detected (Not Detect.); Parainfluenza 4 PCR Not Detected (Not Detect.); RSV PCR Not Detected (Not Detect.); Rhino/Enterovirus PCR Not Detected (Not Detect.)
[2023-11-01 11:28] LABS: SARS-CoV-2 PCR Not Detected (Not Detect.)
[2023-11-01] MEDS: Lidocaine 4 % Patch ADH..PATCH 1 PATCH TRANSDERMA (11:55)
[2023-11-01] MEDS: LORazepam 1 MG TABLET PO ×2 (11:56→20:34)
[2023-11-01 20:15] VITALS: BP 168/80; PULSE 60; RESP 20; TEMP 36
[2023-11-01] MEDS: traZODone HCL 100 MG TABLET PO (20:34)
[2023-11-01 20:35] VITALS: BP 168/80
[2023-11-01] MEDS: Prazosin HCL 1 MG CAPSULE PO (20:35)
[2023-11-01] MEDS: QUEtiapine Fumarate 50 MG TABLET PO (20:35)
--- NOTE | 2023-11-01 21:44 | P.PNPSI_ITS ---
Subjective Subjective Date of Service: 11/01/23 Reason For Visit: Unspecified depressive and anxiety Interim History: calm, cooperative. seen with CHILANGO Montanez and extract mixer. endorses SI, denies HI. endorsing internal monologue advising him to kill himself and his family. reports rage is his primary symptom of concern, then anxiety. amenable to DC prazosin and star doxazosin instead for rage, HTN, anxiety. per staff, scoring on CIWA. constricted, denying SI/HI. Mental Status Exam Mental Status Exam Narrative: Pt is alert and oriented; behavior is cooperative and calm; dressed in casual attire; mood is described as rageful; eye contact appropriate; Speech is normal rate, volume and prosody and not pressured; thought process is organized and goal directed; Thought content is on tx; +SI, no HI, no AVH (reports AH but of internal monologue). Diagnostics Vital Signs (24Hr): Vital Signs - 24 hr 11/01/23 07:37 11/01/23 08:36 11/01/23 20:15 Temperature 96.8 F 96.8 F Pulse Rate 57 60 Respiratory Rate 14 20 Blood Pressure 159/74 H 159/74 H 168/80 H Pulse Oximetry 97 Oxygen Delivery Method Room Air 11/01/23 20:35 Temperature Pulse Rate Respiratory Rate Blood Pressure 168/80 H Pulse Oximetry Oxygen Delivery Method Labs 10/30/23 07:35 Labs: Laboratory Results - last 48 hr 10/30/23 11/01/23 14:46 08:41 Respiratory Panel Fragoso See Note Adenovirus (Rapid PCR) Not Detected B.pert (TEM-PCR) Not Detected B.parapertussis DNA PCR Not Detected C. pneumoniae DNA (PCR) Not Detected Coronavirus OC43 (PCR) Not Detected Coronavirus HKU1 (PCR) Not Detected Coronavirus 229E (PCR) Not Detected Coronavirus NL63 (PCR) Not Detected Hep Bs Antigen Negative Hep Bs Antibody NONREACTIVE Hep B Core Total Ab Reactive Hepatitis C Ab (EIA) Reactive H HIV 1&2 Ab/P24 Ag 4thGn Nonreactive Human Metapneumovir PCR Not Detected Influenza A (RT-PCR) Not Detected Influenza B (RT-PCR) Not Detected M. pneumoniae (PCR) Not Detected Parainfluenza 1 (PCR) Not Detected Parainfluenza 2 (PCR) Not Detected Parainfluenza 3 (PCR) Not Detected Parainfluenza 4 (PCR) Not Detected RSV (PCR) Not Detected Entero/Rhino (PCR) Not Detected SARS-CoV-2 RNA (RT-PCR) Not Detected Medications Medications Current Medications Acetaminophen (Acetaminophen 325 Mg Tablet) 650 mg PO Q6H PRN PRN Reason: Headache/Pain Mild Scale (1-3) Al Hydroxide/Mg Hydroxide (Magnesium Hydrox/Alum Hydrox 30 Ml Oral.Susp) 30 ml PO Q6H PRN PRN Reason: Heartburn/Nausea Last Admin: 10/30/23 13:12 Dose: 30 ml Calcium Carbonate (Calcium Carbonate 750 Mg Tab.Chew) 750 mg PO Q4H PRN PRN Reason: Heartburn Clonidine HCl (Clonidine Hcl 0.1 Mg Tablet) 0.1 mg PO BID PRN; Protocol PRN Reason: Anxiety Last Admin: 10/31/23 00:41 Dose: 0.1 mg Folic Acid (Folic Acid 1 Mg Tablet) 1 mg PO DAILY [facility] Last Admin: 11/01/23 08:36 Dose: 1 mg Hydroxyzine HCl (Hydroxyzine Hcl 25 Mg Tablet) 25 mg PO Q6H PRN PRN Reason: Anxiety Ibuprofen (Ibuprofen 600 Mg Tablet) 600 mg PO Q6H PRN PRN Reason: Pain, Moderate(Pain Scale 4-6) Last Admin: 11/01/23 20:33 Dose: 600 mg Lidocaine (Lidocaine 4 % Patch Adh..Patch) 1 patch TRANSDERMA DAILY [facility]; Protocol Last Admin: 11/01/23 11:55 Dose: 1 patch Lisinopril (Lisinopril 5 Mg Tablet) 5 mg PO DAILY [facility]; Protocol Last Admin: 11/01/23 08:36 Dose: 5 mg Lorazepam (Lorazepam 0.5 Mg Tablet) 0.5 mg PO BID [facility] Stop: 11/03/23 09:01 Magnesium Hydroxide (Milk Of Magnesia 30 Ml Oral.Susp) 30 ml PO DAILY PRN PRN Reason: Constipation Multivitamins/Vitamin C (Multivitamin Tablet) 1 tab PO DAILY [facility] Last Admin: 11/01/23 08:35 Dose: 1 tab Nicotine Polacrilex (Nicotine Polacrilex 2 Mg Gum) 4 mg BUCCAL Q2H PRN PRN Reason: Nicotine Cravings Omeprazole (Omeprazole 20 Mg Capsule.Dr) 20 mg PO DAILY@0630 [facility] Last Admin: 11/01/23 08:35 Dose: 20 mg Prazosin HCl (Prazosin Hcl 1 Mg Capsule) 1 mg PO BEDTIME [facility]; Protocol Last Admin: 11/01/23 20:35 Dose: 1 mg Quetiapine Fumarate (Quetiapine Fumarate 50 Mg Tablet) 50 mg PO Q6H PRN PRN Reason: Agitation Last Admin: 11/01/23 20:35 Dose: 50 mg Thiamine HCl (Thiamine Hcl 100 Mg Tablet) 50 mg PO DAILY [facility] Last Admin: 11/01/23 08:36 Dose: 50 mg Trazodone HCl (Trazodone Hcl 100 Mg Tablet) 100 mg PO BEDTIME [facility] Last Admin: 11/01/23 20:34 Dose: 100 mg Allergies Allergies Allergy/AdvReac Type Severity Reaction Status Date / Time No Known Allergies Allergy Verified 10/05/23 19:50 Assessment & Plan Assessment & Plan (1) MDD (major depressive disorder), recurrent episode, severe: Status: Acute Code(s): F33.2 - Major depressive disorder, recurrent severe without psychotic features (2) Cocaine use disorder: Status: Acute Code(s): F14.10 - Cocaine abuse, uncomplicated (3) Alcohol use disorder: Status: Acute Code(s): F10.90 - Alcohol use, unspecified, uncomplicated Plan Patient is a 57 year old male with hx of MDD, cocaine use d/o and alcohol use d/o who was brought to ER secondary to being found in the bushes intoxicated near [facility]. Plan: CV 15 minute safety checks Continue home medications CIWA consult to addiction medicine referral to outpatient substance abuse program referral to outpatient psychiatric providers discharge planning 10/30: board catcher and RNKrysta, present. Pt reports feeling a little better today; pt stated, it's hard for me to go from having a job and having somewhere to live, to nothing . Pt continues to report suicidal ideation; when asked about homicidal ideation towards his family, pt stated, I don't know yet . Pt denies VH/AH. pt continues to score on CIWA. 10/31: h/o Hep B and Hep C. DC prazosin in favor od doxazosin, advantage half- life. reporting rage as most central Sx, followed by anxiety. will discuss use of SSRI for PTSD/anxiety as well as naltrexone for alcohol use disorder. Reason for continued inpatient stay Substantial Risk for: inability to function and rapid decompensation Time Spent With Patient Time: Total time managing care of this patient today __35__ minutes.
[2023-11-02 09:15] VITALS: BP 143/89; PULSE 68; TEMP 36; O2SAT 97
[2023-11-02] MEDS: Omeprazole 20 MG CAPSULE.DR PO (09:19)
[2023-11-02 09:20] VITALS: BP 143/89
[2023-11-02] MEDS: Multivitamin TABLET 1 TAB PO (09:20)
[2023-11-02] MEDS: Thiamine HCL 100 MG TABLET 50 MG PO (09:20)
[2023-11-02] MEDS: lisinopriL 5 MG TABLET PO (09:20)
[2023-11-02] MEDS: Folic Acid 1 MG TABLET PO (09:21)
[2023-11-02] MEDS: LORazepam 0.5 MG TABLET PO ×2 (09:21→20:10)
--- NOTE | 2023-11-02 16:20 | P.PNPSI_ITS ---
Subjective Subjective Date of Service: 11/02/23 Reason For Visit: Unspecified depressive and anxiety Interim History: seen with program director. calm, cooperative. upset today that he has learned he has another 1.5 yrs of probation, when he thought it was only 0.5 years. c/o depression, feeling frustrated. denies SI/HI. per staff, high dep/anx. labile, tearful. denies planning any SA or HI behaviors. taking meds. c/o back pain. slept 8 hours. Mental Status Exam Mental Status Exam Narrative: Pt is alert and oriented; behavior is cooperative and calm; dressed in casual attire; mood is described as depressed; eye contact appropriate; Speech is normal rate, volume and prosody and not pressured; thought process is organized and goal directed; Thought content is on tx; denies SI/HI. no AVH expressed. Diagnostics Vital Signs (24Hr): Vital Signs - 24 hr 11/01/23 20:15 11/01/23 20:35 11/02/23 09:15 Temperature 96.8 F 96.8 F Pulse Rate 60 68 Respiratory Rate 20 Blood Pressure 168/80 H 168/80 H 143/89 H Pulse Oximetry 97 Oxygen Delivery Method Room Air 11/02/23 09:20 Temperature Pulse Rate Respiratory Rate Blood Pressure 143/89 H Pulse Oximetry Oxygen Delivery Method Labs 10/30/23 07:35 Labs: Laboratory Results - last 48 hr 10/30/23 11/01/23 14:46 08:41 Respiratory Panel Fragoso See Note Adenovirus (Rapid PCR) Not Detected B.pert (TEM-PCR) Not Detected B.parapertussis DNA PCR Not Detected C. pneumoniae DNA (PCR) Not Detected Coronavirus OC43 (PCR) Not Detected Coronavirus HKU1 (PCR) Not Detected Coronavirus 229E (PCR) Not Detected Coronavirus NL63 (PCR) Not Detected Hep Bs Antigen Negative Hep Bs Antibody NONREACTIVE Hep B Core Total Ab Reactive Hepatitis C Ab (EIA) Reactive H HIV 1&2 Ab/P24 Ag 4thGn Nonreactive Human Metapneumovir PCR Not Detected Influenza A (RT-PCR) Not Detected Influenza B (RT-PCR) Not Detected M. pneumoniae (PCR) Not Detected Parainfluenza 1 (PCR) Not Detected Parainfluenza 2 (PCR) Not Detected Parainfluenza 3 (PCR) Not Detected Parainfluenza 4 (PCR) Not Detected RSV (PCR) Not Detected Entero/Rhino (PCR) Not Detected SARS-CoV-2 RNA (RT-PCR) Not Detected Medications Medications Current Medications Acetaminophen (Acetaminophen 325 Mg Tablet) 650 mg PO Q6H PRN PRN Reason: Headache/Pain Mild Scale (1-3) Al Hydroxide/Mg Hydroxide (Magnesium Hydrox/Alum Hydrox 30 Ml Oral.Susp) 30 ml PO Q6H PRN PRN Reason: Heartburn/Nausea Last Admin: 10/30/23 13:12 Dose: 30 ml Calcium Carbonate (Calcium Carbonate 750 Mg Tab.Chew) 750 mg PO Q4H PRN PRN Reason: Heartburn Clonidine HCl (Clonidine Hcl 0.1 Mg Tablet) 0.1 mg PO BID PRN; Protocol PRN Reason: Anxiety Last Admin: 10/31/23 00:41 Dose: 0.1 mg Doxazosin Mesylate (Doxazosin Mesylate 1 Mg Tablet) 1 mg PO BEDTIME [facility]; Protocol Folic Acid (Folic Acid 1 Mg Tablet) 1 mg PO DAILY [facility] Last Admin: 11/02/23 09:21 Dose: 1 mg Hydroxyzine HCl (Hydroxyzine Hcl 25 Mg Tablet) 25 mg PO Q6H PRN PRN Reason: Anxiety Ibuprofen (Ibuprofen 600 Mg Tablet) 600 mg PO Q6H PRN PRN Reason: Pain, Moderate(Pain Scale 4-6) Last Admin: 11/01/23 20:33 Dose: 600 mg Lidocaine (Lidocaine 4 % Patch Adh..Patch) 1 patch TRANSDERMA DAILY [facility]; Protocol Last Admin: 11/02/23 09:22 Dose: Not Given Lisinopril (Lisinopril 5 Mg Tablet) 5 mg PO DAILY [facility]; Protocol Last Admin: 11/02/23 09:20 Dose: 5 mg Lorazepam (Lorazepam 0.5 Mg Tablet) 0.5 mg PO BID [facility] Stop: 11/03/23 09:01 Last Admin: 11/02/23 09:21 Dose: 0.5 mg Magnesium Hydroxide (Milk Of Magnesia 30 Ml Oral.Susp) 30 ml PO DAILY PRN PRN Reason: Constipation Multivitamins/Vitamin C (Multivitamin Tablet) 1 tab PO DAILY [facility]LENY Last Admin: 11/02/23 09:20 Dose: 1 tab Nicotine Polacrilex (Nicotine Polacrilex 2 Mg Gum) 4 mg BUCCAL Q2H PRN PRN Reason: Nicotine Cravings Omeprazole (Omeprazole 20 Mg Capsule.Dr) 20 mg PO DAILY@0630 [facility] Last Admin: 11/02/23 09:19 Dose: 20 mg Quetiapine Fumarate (Quetiapine Fumarate 50 Mg Tablet) 50 mg PO Q6H PRN PRN Reason: Agitation Last Admin: 11/01/23 20:35 Dose: 50 mg Thiamine HCl (Thiamine Hcl 100 Mg Tablet) 50 mg PO DAILY [facility] Last Admin: 11/02/23 09:20 Dose: 50 mg Trazodone HCl (Trazodone Hcl 100 Mg Tablet) 100 mg PO BEDTIME [facility] Last Admin: 11/01/23 20:34 Dose: 100 mg Allergies Allergies Allergy/AdvReac Type Severity Reaction Status Date / Time No Known Allergies Allergy Verified 10/05/23 19:50 Assessment & Plan Assessment & Plan (1) MDD (major depressive disorder), recurrent episode, severe: Status: Acute Code(s): F33.2 - Major depressive disorder, recurrent severe without psychotic features (2) Cocaine use disorder: Status: Acute Code(s): F14.10 - Cocaine abuse, uncomplicated (3) Alcohol use disorder: Status: Acute Code(s): F10.90 - Alcohol use, unspecified, uncomplicated Plan Patient is a 57 year old male with hx of MDD, cocaine use d/o and alcohol use d/o who was brought to ER secondary to being found in the bushes intoxicated near . Plan: CV 15 minute safety checks Continue home medications CIWA consult to addiction medicine referral to outpatient substance abuse program referral to outpatient psychiatric providers discharge planning 10/30: cultural centre manager and RNKrysta, present. Pt reports feeling a little better today; pt stated, it's hard for me to go from having a job and having somewhere to live, to nothing . Pt continues to report suicidal ideation; when asked about homicidal ideation towards his family, pt stated, I don't know yet . Pt denies VH/AH. pt continues to score on CIWA. 10/31: h/o Hep B and Hep C. DC prazosin in favor of doxazosin, advantage half- life. reporting rage as most central Sx, followed by anxiety. will discuss use of SSRI for PTSD/anxiety as well as naltrexone for alcohol use disorder. 11/01: denies SI/HI today. more depressed and rageful. agrees to start zoloft 50 tomorrow, otherwise continue current mgmt. T/C naltrexone tomorrow. Reason for continued inpatient stay Substantial Risk for: harm to self, inability to function and rapid decompensation Time Spent With Patient Time: Total time managing care of this patient today __35__ minutes.
[2023-11-02 19:20] VITALS: BP 139/85; PULSE 66; RESP 16; TEMP 36.2; O2SAT 96
[2023-11-02 19:28] LABS: Hepatitis B Core Antibody IgM NON-REACTIVE (NON-REACTIVE)
[2023-11-02] MEDS: bisacodyL 5 MG TABLET.DR 10 MG PO (19:41)
[2023-11-02] MEDS: Docusate Sodium 100 MG CAPSULE PO (20:09)
[2023-11-02] MEDS: traZODone HCL 100 MG TABLET PO (20:10)
[2023-11-02] MEDS: QUEtiapine Fumarate 50 MG TABLET PO (20:15)
[2023-11-02] MEDS: Ibuprofen 600 MG TABLET PO (20:15)
[2023-11-02 21:04] VITALS: BP 138/89
[2023-11-02] MEDS: Doxazosin Mesylate 1 MG TABLET PO (21:04)
[2023-11-03 07:40] VITALS: BP 154/75; PULSE 61; RESP 14; TEMP 36; O2SAT 94
[2023-11-03 08:31] VITALS: BP 154/75
[2023-11-03] MEDS: Multivitamin TABLET 1 TAB PO (08:31)
[2023-11-03] MEDS: LORazepam 0.5 MG TABLET PO (08:31)
[2023-11-03] MEDS: lisinopriL 5 MG TABLET PO (08:31)
[2023-11-03] MEDS: Thiamine HCL 100 MG TABLET 50 MG PO (08:32)
[2023-11-03] MEDS: Docusate Sodium 100 MG CAPSULE PO ×2 (08:32→21:39)
[2023-11-03] MEDS: Omeprazole 20 MG CAPSULE.DR PO (08:32)
[2023-11-03] MEDS: Folic Acid 1 MG TABLET PO (08:32)
[2023-11-03] MEDS: Sertraline HCL 50 MG TABLET PO (08:32)
[2023-11-03] MEDS: Ibuprofen 600 MG TABLET PO ×2 (12:32→22:11)
[2023-11-03 14:32] LABS: HCV Log PCR 5.04 Log IU/mL (NOT DETECTED); HepC Viral Load 109000 IU/mL (NOT DETECTED)
[2023-11-03] MEDS: Gabapentin 300 MG CAPSULE PO ×2 (15:38→21:39)
--- NOTE | 2023-11-03 16:12 | P.PNPSI_ITS ---
Subjective Subjective Date of Service: 11/03/23 Reason For Visit: Unspecified depressive and anxiety Interim History: calm, cooperative. c/o lower back pain radiating down the leg, some relief with lidocaine. agreeable to take SNRI rather than SSRI for anx/dep/pain. sleeping OK, but BP remains elevated. agreeable to increase HS doxazosin as well. also willing to add gabapentin 300 TID for neuropathic pain. per staff, denies dep, some anxiety. taking meds. no SI/HI. getting dulcolax, colace. slept 8 hours. Mental Status Exam Mental Status Exam Narrative: Pt is alert and oriented; behavior is cooperative and calm; dressed in casual attire; mood is described as OK; eye contact appropriate; Speech is normal rate, volume and prosody and not pressured; thought process is organized and goal directed; Thought content is on tx; no SI/HI/AVH expressed. Diagnostics Vital Signs (24Hr): Vital Signs - 24 hr 11/02/23 19:20 11/02/23 21:04 11/03/23 07:40 Temperature 97.2 F 96.8 F Pulse Rate 66 61 Respiratory Rate 16 14 Blood Pressure 139/85 138/89 154/75 H Pulse Oximetry 96 94 Oxygen Delivery Method Room Air Room Air 11/03/23 08:31 Temperature Pulse Rate Respiratory Rate Blood Pressure 154/75 H Pulse Oximetry Oxygen Delivery Method Labs 10/30/23 07:35 Labs: Laboratory Results - last 48 hr 10/30/23 14:46 Hep B Core IgM Ab NON-REACTIVE Hep C Viral Load 237218 H Hep C Viral Load Log 5.04 H Medications Medications Current Medications Acetaminophen (Acetaminophen 325 Mg Tablet) 650 mg PO Q6H PRN PRN Reason: Headache/Pain Mild Scale (1-3) Al Hydroxide/Mg Hydroxide (Magnesium Hydrox/Alum Hydrox 30 Ml Oral.Susp) 30 ml PO Q6H PRN PRN Reason: Heartburn/Nausea Last Admin: 10/30/23 13:12 Dose: 30 ml Calcium Carbonate (Calcium Carbonate 750 Mg Tab.Chew) 750 mg PO Q4H PRN PRN Reason: Heartburn Clonidine HCl (Clonidine Hcl 0.1 Mg Tablet) 0.1 mg PO BID PRN; Protocol PRN Reason: Anxiety Last Admin: 10/31/23 00:41 Dose: 0.1 mg Docusate Sodium (Docusate Sodium 100 Mg Capsule) 100 mg PO BID [facility] Last Admin: 11/03/23 08:32 Dose: 100 mg Doxazosin Mesylate (Doxazosin Mesylate 2 Mg Tablet) 2 mg PO BEDTIME [facility]; Protocol Folic Acid (Folic Acid 1 Mg Tablet) 1 mg PO DAILY [facility] Last Admin: 11/03/23 08:32 Dose: 1 mg Gabapentin (Gabapentin 300 Mg Capsule) 300 mg PO TID [facility] Last Admin: 11/03/23 15:38 Dose: 300 mg Hydroxyzine HCl (Hydroxyzine Hcl 25 Mg Tablet) 25 mg PO Q6H PRN PRN Reason: Anxiety Ibuprofen (Ibuprofen 600 Mg Tablet) 600 mg PO Q6H PRN PRN Reason: Pain, Moderate(Pain Scale 4-6) Last Admin: 11/03/23 12:32 Dose: 600 mg Lidocaine (Lidocaine 4 % Patch Adh..Patch) 1 patch TRANSDERMA DAILY [facility]; Protocol Last Admin: 11/03/23 08:45 Dose: Not Given Lisinopril (Lisinopril 5 Mg Tablet) 5 mg PO DAILY [facility]; Protocol Last Admin: 11/03/23 08:31 Dose: 5 mg Magnesium Hydroxide (Milk Of Magnesia 30 Ml Oral.Susp) 30 ml PO DAILY PRN PRN Reason: Constipation Multivitamins/Vitamin C (Multivitamin Tablet) 1 tab PO DAILY [facility] Last Admin: 11/03/23 08:31 Dose: 1 tab Nicotine Polacrilex (Nicotine Polacrilex 2 Mg Gum) 4 mg BUCCAL Q2H PRN PRN Reason: Nicotine Cravings Omeprazole (Omeprazole 20 Mg Capsule.Dr) 20 mg PO DAILY@0630 [facility] Last Admin: 11/03/23 08:32 Dose: 20 mg Quetiapine Fumarate (Quetiapine Fumarate 50 Mg Tablet) 50 mg PO Q6H PRN PRN Reason: Agitation Last Admin: 11/02/23 20:15 Dose: 50 mg Thiamine HCl (Thiamine Hcl 100 Mg Tablet) 50 mg PO DAILY [facility] Last Admin: 11/03/23 08:32 Dose: 50 mg Trazodone HCl (Trazodone Hcl 100 Mg Tablet) 100 mg PO BEDTIME [facility] Last Admin: 11/02/23 20:10 Dose: 100 mg Venlafaxine HCl (Venlafaxine Hcl Er 75 Mg Cap.Er.24h) 75 mg PO DAILY [facility] Allergies Allergies Allergy/AdvReac Type Severity Reaction Status Date / Time No Known Allergies Allergy Verified 10/05/23 19:50 Assessment & Plan Assessment & Plan (1) MDD (major depressive disorder), recurrent episode, severe: Status: Acute Code(s): F33.2 - Major depressive disorder, recurrent severe without psychotic features (2) Cocaine use disorder: Status: Acute Code(s): F14.10 - Cocaine abuse, uncomplicated (3) Alcohol use disorder: Status: Acute Code(s): F10.90 - Alcohol use, unspecified, uncomplicated (4) Hepatitis C infection: Status: Acute Code(s): B19.20 - Unspecified viral hepatitis C without hepatic coma Plan Patient is a 57 year old male with hx of MDD, cocaine use d/o and alcohol use d/o who was brought to ER secondary to being found in the bushes intoxicated near [facility]. Plan: CV 15 minute safety checks Continue home medications CIWA consult to addiction medicine referral to outpatient substance abuse program referral to outpatient psychiatric providers discharge planning 10/30: industrial pharmacist and RNKrysta, present. Pt reports feeling a little better today; pt stated, it's hard for me to go from having a job and having somewhere to live, to nothing . Pt continues to report suicidal ideation; when asked about homicidal ideation towards his family, pt stated, I don't know yet . Pt denies VH/AH. pt continues to score on CIWA. 10/31: h/o Hep B and Hep C. DC prazosin in favor of doxazosin, advantage half- life. reporting rage as most central Sx, followed by anxiety. will discuss use of SSRI for PTSD/anxiety as well as naltrexone for alcohol use disorder. 11/01: denies SI/HI today. more depressed and rageful. agrees to start zoloft 50 tomorrow, otherwise continue current mgmt. T/C naltrexone tomorrow. 11/02: pt has not cleared Hep C; consult with GI re mgmt after discussing Hx of Tx with pt. DC zoloft and start effexor XR after revelation of neuropathic pain today. also start gabapentin 300 TID. increase doxazosin for sleep and BP. Reason for continued inpatient stay Substantial Risk for: inability to function and rapid decompensation Time Spent With Patient Time: Total time managing care of this patient today __25__ minutes.
[2023-11-03] MEDS: Doxazosin Mesylate 2 MG TABLET PO (21:39)
[2023-11-03] MEDS: traZODone HCL 100 MG TABLET PO (21:39)
[2023-11-03 21:40] VITALS: BP 153/94; PULSE 62; RESP 16; TEMP 36.3; O2SAT 96
[2023-11-04] VITALS (9 sets, daily range): BP systolic 85–157; BP diastolic 55–83; PULSE 56–83; RESP 14–18; TEMP 36.1–37; O2SAT 98; BMI 27.6
[2023-11-04] MEDS: hydrOXYzine HCL 25 MG TABLET PO (05:12)
[2023-11-04] MEDS: Omeprazole 20 MG CAPSULE.DR PO (05:45)
[2023-11-04] MEDS: Venlafaxine HCl ER 75 MG CAP.ER.24H PO (09:37)
[2023-11-04] MEDS: Docusate Sodium 100 MG CAPSULE PO ×2 (09:37→21:43)
[2023-11-04] MEDS: Ibuprofen 600 MG TABLET PO ×2 (09:38→15:38)
[2023-11-04] MEDS: lisinopriL 5 MG TABLET PO (09:38)
[2023-11-04] MEDS: Thiamine HCL 100 MG TABLET 50 MG PO (09:38)
[2023-11-04] MEDS: Gabapentin 300 MG CAPSULE PO ×3 (09:38→21:46)
[2023-11-04] MEDS: Folic Acid 1 MG TABLET PO (09:38)
[2023-11-04] MEDS: Multivitamin TABLET 1 TAB PO (09:38)
[2023-11-04] MEDS: Lidocaine 4 % Patch ADH..PATCH 1 PATCH TRANSDERMA (09:39)
--- NOTE | 2023-11-04 13:54 | HO.PSYCHPN ---
Subjective Subjective Date of Service: 11/04/23 Reason For Visit: Unspecified depressive and anxiety Interim History: calm, cooperative. seen with CHILANGO Montanez and automation/controls manager. c/o poor sleep. in discussion, it becaomes apparent that this is a chronic problem. agrees to increase trazodone to 200 mg from 100 mg QHS. Mental Status Exam Mental Status Exam Narrative: Pt is alert and oriented; behavior is cooperative and calm; dressed in casual attire; mood is described as OK; eye contact appropriate; Speech is normal rate, volume and prosody and not pressured; thought process is organized and goal directed; Thought content is on tx; no SI/HI/AVH expressed. Diagnostics Vital Signs (24Hr): Vital Signs - 24 hr 11/03/23 21:40 11/04/23 07:42 11/04/23 09:38 Temperature 97.4 F 96.9 F Pulse Rate 62 56 Respiratory Rate 16 14 Blood Pressure 153/94 H 155/77 H 130/73 Pulse Oximetry 96 98 Oxygen Delivery Method Room Air Room Air Labs 10/30/23 07:35 Labs: Laboratory Results - last 48 hr 10/30/23 14:46 Hep B Core IgM Ab NON-REACTIVE Hep C Viral Load 773967 H Hep C Viral Load Log 5.04 H Medications Medications Current Medications Acetaminophen (Acetaminophen 325 Mg Tablet) 650 mg PO Q6H PRN PRN Reason: Headache/Pain Mild Scale (1-3) Al Hydroxide/Mg Hydroxide (Magnesium Hydrox/Alum Hydrox 30 Ml Oral.Susp) 30 ml PO Q6H PRN PRN Reason: Heartburn/Nausea Last Admin: 10/30/23 13:12 Dose: 30 ml Calcium Carbonate (Calcium Carbonate 750 Mg Tab.Chew) 750 mg PO Q4H PRN PRN Reason: Heartburn Clonidine HCl (Clonidine Hcl 0.1 Mg Tablet) 0.1 mg PO BID PRN; Protocol PRN Reason: Anxiety Last Admin: 10/31/23 00:41 Dose: 0.1 mg Docusate Sodium (Docusate Sodium 100 Mg Capsule) 100 mg PO BID [facility] Last Admin: 11/04/23 09:37 Dose: 100 mg Doxazosin Mesylate (Doxazosin Mesylate 2 Mg Tablet) 2 mg PO BEDTIME [facility]; Protocol Last Admin: 11/03/23 21:39 Dose: 2 mg Folic Acid (Folic Acid 1 Mg Tablet) 1 mg PO DAILY [facility] Last Admin: 11/04/23 09:38 Dose: 1 mg Gabapentin (Gabapentin 300 Mg Capsule) 300 mg PO TID [facility] Last Admin: 11/04/23 09:38 Dose: 300 mg Hydroxyzine HCl (Hydroxyzine Hcl 50 Mg Tablet) 50 mg PO Q4H PRN PRN Reason: Anxiety Ibuprofen (Ibuprofen 600 Mg Tablet) 600 mg PO Q6H PRN PRN Reason: Pain, Moderate(Pain Scale 4-6) Last Admin: 11/04/23 09:38 Dose: 600 mg Lidocaine (Lidocaine 4 % Patch Adh..Patch) 1 patch TRANSDERMA DAILY [facility]; Protocol Last Admin: 11/04/23 09:39 Dose: 1 patch Lisinopril (Lisinopril 5 Mg Tablet) 5 mg PO DAILY [facility]; Protocol Last Admin: 11/04/23 09:38 Dose: 5 mg Magnesium Hydroxide (Milk Of Magnesia 30 Ml Oral.Susp) 30 ml PO DAILY PRN PRN Reason: Constipation Multivitamins/Vitamin C (Multivitamin Tablet) 1 tab PO DAILY [facility] Last Admin: 11/04/23 09:38 Dose: 1 tab Nicotine Polacrilex (Nicotine Polacrilex 2 Mg Gum) 4 mg BUCCAL Q2H PRN PRN Reason: Nicotine Cravings Omeprazole (Omeprazole 20 Mg Capsule.Dr) 20 mg PO DAILY@0630 [facility] Last Admin: 11/04/23 05:45 Dose: 20 mg Quetiapine Fumarate (Quetiapine Fumarate 50 Mg Tablet) 50 mg PO Q6H PRN PRN Reason: Agitation Last Admin: 11/02/23 20:15 Dose: 50 mg Thiamine HCl (Thiamine Hcl 100 Mg Tablet) 50 mg PO DAILY [facility] Last Admin: 11/04/23 09:38 Dose: 50 mg Trazodone HCl (Trazodone Hcl 100 Mg Tablet) 200 mg PO BEDTIME [facility] Venlafaxine HCl (Venlafaxine Hcl Er 75 Mg Cap.Er.24h) 75 mg PO DAILY [facility] Last Admin: 11/04/23 09:37 Dose: 75 mg Allergies Allergies Allergy/AdvReac Type Severity Reaction Status Date / Time No Known Allergies Allergy Verified 10/05/23 19:50 Assessment & Plan Assessment & Plan (1) MDD (major depressive disorder), recurrent episode, severe: Status: Acute Code(s): F33.2 - Major depressive disorder, recurrent severe without psychotic features (2) Cocaine use disorder: Status: Acute Code(s): F14.10 - Cocaine abuse, uncomplicated (3) Alcohol use disorder: Status: Acute Code(s): F10.90 - Alcohol use, unspecified, uncomplicated (4) Hepatitis C infection: Status: Acute Code(s): B19.20 - Unspecified viral hepatitis C without hepatic coma Plan Patient is a 57 year old male with hx of MDD, cocaine use d/o and alcohol use d/o who was brought to ER secondary to being found in the bushes intoxicated near [facility]. Plan: CV 15 minute safety checks Continue home medications CIWA consult to addiction medicine referral to outpatient substance abuse program referral to outpatient psychiatric providers discharge planning 10/30: oceanographic meteorologist and RN, Krysta, present. Pt reports feeling a little better today; pt stated, it's hard for me to go from having a job and having somewhere to live, to nothing . Pt continues to report suicidal ideation; when asked about homicidal ideation towards his family, pt stated, I don't know yet . Pt denies VH/AH. pt continues to score on CIWA. 10/31: h/o Hep B and Hep C. DC prazosin in favor of doxazosin, advantage half-life. reporting rage as most central Sx, followed by anxiety. will discuss use of SSRI for PTSD/anxiety as well as naltrexone for alcohol use disorder. 11/01: denies SI/HI today. more depressed and rageful. agrees to start zoloft 50 tomorrow, otherwise continue current mgmt. T/C naltrexone tomorrow. 11/02: pt has not cleared Hep C; consult with GI re mgmt after discussing Hx of Tx with pt. DC zoloft and start effexor XR after revelation of neuropathic pain today. also start gabapentin 300 TID. increase doxazosin for sleep and BP. 11/03: increase trazodone to 200 mg QHS for sleep. if BP stable tomorrow, increase doxazosin to 3 mg QHS. T/C increase in gabapentin as well if neuropathic pain remains uncontrolled. Reason for continued inpatient stay Substantial Risk for: harm to self, inability to function and rapid decompensation Time Spent With Patient Time: Total time managing care of this patient today __25__ minutes.
[2023-11-04] MEDS: QUEtiapine Fumarate 50 MG TABLET PO (21:47)
--- NOTE | 2023-11-04 22:07 | HO.EVEPSY2_ITS ---
Documented by User: Gris Bowens APRN 11/04/23 22:11 Event Note Date of Service: 11/04/23 Psych On-Call Event Note: Notified by team that pt received Clonidine 0.2 mg along with Prazosin 2 mg together this evening. Currently pt is asymptomatic. Plan: Change to 5 minute checks for the night. Falls precautions Orthostatic vital signs q 4 H while awake EKG and re-eval in the a.m. Hold, Clonidine, Cardura, Hydroxyzine, Trazodone, Zestril until re- evaluated in the a.m. Time Spent With Patient Time: Total time managing care of this patient today ____ minutes. Documented by User: Dennis Quiñones MD 11/05/23 15:34 Event Note Date of Service: 11/05/23
[2023-11-05] VITALS (10 sets, daily range): BP systolic 104–174; BP diastolic 60–84; PULSE 54–80; RESP 16–18; TEMP 37.1; O2SAT 98–99
--- NOTE | 2023-11-05 01:36 | PC.NURSE ---
At approximately 2040 this evening on 11/04/23, Pt was given Prazosin 2mg and Clonidine 0.2mg which were not on his MAR. This RN erroneously scanned the meds to the MAR of another pt who had left the area momentarily and when pt RL presented for his medication, was erroneously given the wrong meds which were scanned for the other pt. bingo caller CAW was notified and informed of the event.CAW held certain bp affecting meds (hydroxyzine, cardura, trazodone and clonidine as well as his AM dose of lisinopril). bingo caller CAW also ordered Ortho vs q4h while awake and placed pt on fall precautions as well as 5 minute checks for safety, EKG also ordered for tomorrow AM. Pt is sri lankan speaking only so claudia Yanes was brought to unit for assistance. Via official court interpreter pt was notified of event, pt verbalized understanding of event and stated It's ok, I understand, I feel ok . Pt was not in any apparent distress. Pt educated on signs and sx to watch for such as dizziness and moving slowly when rising. Pt also will notify staff immediately if feeling dizzy or unsteady. Will continue to monitor pt throughout night.
--- NOTE | 2023-11-05 02:27 | PC.NURSE ---
At approximately 2040 this evening on 11/04/23, Pt was given Prazosin 2mg and Clonidine 0.2mg which were not on his MAR. Pt VS were 157/83 and HR 63 at the time of administration. This RN erroneously scanned the meds to the MAR of another pt who had left the area momentarily and when pt RL presented for his medication, was erroneously given the wrong meds which were scanned for the other pt. Once realized at approximately 2099, inbound call center representative CAW was notified and informed of the event. VS were taken and were 106/61 HR 68. CAW held certain bp affecting meds (hydroxyzine, cardura, trazodone and clonidine as well as his AM dose of lisinopril). inbound call center representative CAW also ordered Ortho vs q4h while awake and placed pt on fall precautions as well as 5 minute checks for safety, EKG also ordered for tomorrow AM. Orthostatic vs were 103/65 HR 65, 85/55 HR 75 and 134/62 HR 83. Pt is samoan speaking only so claudia Yanes was brought to unit for assistance. Via chart writer, pt was notified of event, pt verbalized understanding of event and stated It's ok, I understand, I feel ok . Pt was not in any apparent distress. Pt educated on signs and sx to watch for such as dizziness and moving slowly when rising. Pt also stated that he will notify staff immediately if feeling dizzy or unsteady. Will continue to monitor pt throughout night. Nursing Siupervisor's Erika Beckett and Mireille Rodrigues were notified of event tonight.
[2023-11-05] MEDS: Omeprazole 20 MG CAPSULE.DR PO (06:10)
--- NOTE | 2023-11-05 08:00 | ECG_ITS ---
Test Reason : HYPOTENSION Blood Pressure : / mmHG Vent. Rate : 055 BPM Atrial Rate : 055 BPM P-R Int : 188 ms QRS Dur : 092 ms QT Int : 406 ms P-R-T Axes : 059 030 058 degrees QTc Int : 388 ms Sinus bradycardia Otherwise normal ECG No previous ECGs available Referred By: Gris Bowens Electronically Signed By:SARAH SALMERON MD
[2023-11-05] MEDS: Venlafaxine HCl ER 75 MG CAP.ER.24H PO (08:49)
[2023-11-05] MEDS: Folic Acid 1 MG TABLET PO (08:49)
[2023-11-05] MEDS: Thiamine HCL 100 MG TABLET 50 MG PO (08:49)
[2023-11-05] MEDS: Docusate Sodium 100 MG CAPSULE PO ×2 (08:49→21:01)
[2023-11-05] MEDS: Multivitamin TABLET 1 TAB PO (08:50)
[2023-11-05] MEDS: Gabapentin 300 MG CAPSULE PO ×3 (08:50→20:59)
--- NOTE | 2023-11-05 13:47 | P.PNPSI_ITS ---
Subjective Subjective Date of Service: 11/05/23 Reason For Visit: Unspecified depressive and anxiety Interim History: seen with furnace utility operator and CHILANGO Montanez. given wrong meds last NOC, extra BP meds. various meds put on hold overnight. appears well now, BP recovered. will restart everything except hold lisinopril for now, as we are increasing doxazosin at HS tonight. no questions or concerns. awaiting word from [facility]. per staff, panic attack yesterday. no SI/HI/AVH. +anx/dep. got clonidine and prazosin, which he shouldn't have. Mental Status Exam Mental Status Exam Narrative: Pt is alert and oriented; behavior is cooperative and calm; dressed in casual attire; mood is described as OK; eye contact appropriate; Speech is normal rate, volume and prosody and not pressured; thought process is organized and goal directed; Thought content is on tx; no SI/HI/AVH expressed. Diagnostics Vital Signs (24Hr): Vital Signs - 24 hr 11/04/23 20:41 11/04/23 21:13 11/04/23 21:20 Temperature 98.6 F 98.4 F 98.6 F Pulse Rate 63 68 63 Respiratory Rate 18 16 18 Blood Pressure 157/83 H 106/61 157/83 H Pulse Oximetry 98 98 98 Oxygen Delivery Method Room Air Room Air Room Air 11/04/23 22:15 11/04/23 22:15 11/04/23 22:16 Temperature Pulse Rate 65 65 75 Respiratory Rate 18 18 Blood Pressure 103/65 103/65 85/55 L Pulse Oximetry Oxygen Delivery Method 11/04/23 22:18 11/04/23 22:20 11/04/23 22:20 Temperature Pulse Rate 75 83 83 Respiratory Rate 18 Blood Pressure 85/55 L 134/62 134/62 Pulse Oximetry Oxygen Delivery Method 11/05/23 06:07 11/05/23 07:43 11/05/23 08:00 Temperature 98.8 F Pulse Rate 65 56 54 Respiratory Rate 18 16 Blood Pressure 131/78 125/78 121/75 Pulse Oximetry 98 99 Oxygen Delivery Method Room Air Room Air 11/05/23 08:24 11/05/23 08:25 11/05/23 12:00 Temperature Pulse Rate 54 56 67 Respiratory Rate Blood Pressure 128/78 105/68 130/75 Pulse Oximetry Oxygen Delivery Method 11/05/23 12:00 11/05/23 12:16 Temperature Pulse Rate 80 72 Respiratory Rate Blood Pressure 104/65 116/77 Pulse Oximetry Oxygen Delivery Method BMI result Body Mass Index 27.6 Labs 10/30/23 07:35 Labs: Laboratory Results - last 48 hr 10/30/23 14:46 Hep C Viral Load 123353 H Hep C Viral Load Log 5.04 H Medications Medications Current Medications Acetaminophen (Acetaminophen 325 Mg Tablet) 650 mg PO Q6H PRN PRN Reason: Headache/Pain Mild Scale (1-3) Al Hydroxide/Mg Hydroxide (Magnesium Hydrox/Alum Hydrox 30 Ml Oral.Susp) 30 ml PO Q6H PRN PRN Reason: Heartburn/Nausea Last Admin: 10/30/23 13:12 Dose: 30 ml Calcium Carbonate (Calcium Carbonate 750 Mg Tab.Chew) 750 mg PO Q4H PRN PRN Reason: Heartburn Docusate Sodium (Docusate Sodium 100 Mg Capsule) 100 mg PO BID [facility] Last Admin: 11/05/23 08:49 Dose: 100 mg Doxazosin Mesylate (Doxazosin Mesylate 1 Mg Tablet) 3 mg PO BEDTIME [facility]; Protocol Folic Acid (Folic Acid 1 Mg Tablet) 1 mg PO DAILY [facility] Last Admin: 11/05/23 08:49 Dose: 1 mg Gabapentin (Gabapentin 300 Mg Capsule) 300 mg PO TID [facility] Last Admin: 11/05/23 08:50 Dose: 300 mg Ibuprofen (Ibuprofen 600 Mg Tablet) 600 mg PO Q6H PRN PRN Reason: Pain, Moderate(Pain Scale 4-6) Last Admin: 11/04/23 15:38 Dose: 600 mg Lidocaine (Lidocaine 4 % Patch Adh..Patch) 1 patch TRANSDERMA DAILY [facility]; Protocol Last Admin: 11/05/23 10:06 Dose: Not Given Lisinopril (Lisinopril 5 Mg Tablet) 5 mg PO DAILY [facility]; Protocol Last Admin: 11/04/23 09:38 Dose: 5 mg Magnesium Hydroxide (Milk Of Magnesia 30 Ml Oral.Susp) 30 ml PO DAILY PRN PRN Reason: Constipation Multivitamins/Vitamin C (Multivitamin Tablet) 1 tab PO DAILY [facility] Last Admin: 11/05/23 08:50 Dose: 1 tab Nicotine Polacrilex (Nicotine Polacrilex 2 Mg Gum) 4 mg BUCCAL Q2H PRN PRN Reason: Nicotine Cravings Omeprazole (Omeprazole 20 Mg Capsule.Dr) 20 mg PO DAILY@0630 [facility] Last Admin: 11/05/23 06:10 Dose: 20 mg Quetiapine Fumarate (Quetiapine Fumarate 50 Mg Tablet) 50 mg PO Q6H PRN PRN Reason: Agitation Last Admin: 11/04/23 21:47 Dose: 50 mg Thiamine HCl (Thiamine Hcl 100 Mg Tablet) 50 mg PO DAILY [facility] Last Admin: 11/05/23 08:49 Dose: 50 mg Trazodone HCl (Trazodone Hcl 100 Mg Tablet) 200 mg PO BEDTIME [facility] Last Admin: 11/04/23 21:48 Dose: Not Given Venlafaxine HCl (Venlafaxine Hcl Er 75 Mg Cap.Er.24h) 75 mg PO DAILY [facility] Last Admin: 11/05/23 08:49 Dose: 75 mg Allergies Allergies Allergy/AdvReac Type Severity Reaction Status Date / Time No Known Allergies Allergy Verified 10/05/23 19:50 Assessment & Plan Assessment & Plan (1) MDD (major depressive disorder), recurrent episode, severe: Status: Acute Code(s): F33.2 - Major depressive disorder, recurrent severe without psychotic features (2) Cocaine use disorder: Status: Acute Code(s): F14.10 - Cocaine abuse, uncomplicated (3) Alcohol use disorder: Status: Acute Code(s): F10.90 - Alcohol use, unspecified, uncomplicated (4) Hepatitis C infection: Status: Acute Code(s): B19.20 - Unspecified viral hepatitis C without hepatic coma Plan Patient is a 57 year old male with hx of MDD, cocaine use d/o and alcohol use d/o who was brought to ER secondary to being found in the bushes intoxicated near [facility]. Plan: CV 15 minute safety checks Continue home medications CIWA consult to addiction medicine referral to outpatient substance abuse program referral to outpatient psychiatric providers discharge planning 10/30: care tech and RNKrysta, present. Pt reports feeling a little better today; pt stated, it's hard for me to go from having a job and having somewhere to live, to nothing . Pt continues to report suicidal ideation; when asked about homicidal ideation towards his family, pt stated, I don't know yet . Pt denies VH/AH. pt continues to score on CIWA. 10/31: h/o Hep B and Hep C. DC prazosin in favor of doxazosin, advantage half- life. reporting rage as most central Sx, followed by anxiety. will discuss use of SSRI for PTSD/anxiety as well as naltrexone for alcohol use disorder. 11/01: denies SI/HI today. more depressed and rageful. agrees to start zoloft 50 tomorrow, otherwise continue current mgmt. T/C naltrexone tomorrow. 11/02: pt has not cleared Hep C; consult with GI re mgmt after discussing Hx of Tx with pt. DC zoloft and start effexor XR after revelation of neuropathic pain today. also start gabapentin 300 TID. increase doxazosin for sleep and BP. 11/03: increase trazodone to 200 mg QHS for sleep. if BP stable tomorrow, increase doxazosin to 3 mg QHS. T/C increase in gabapentin as well if neuropathic pain remains uncontrolled. 11/04: med error caused him to get clonidine and prazosin. restarting all meds now aside from lisinopril. doxazosin increased to 3 mg at HS, otherwise no changes. Reason for continued inpatient stay Substantial Risk for: inability to function and rapid decompensation Time Spent With Patient Time: Total time managing care of this patient today __35__ minutes.
[2023-11-05] MEDS: traZODone HCL 100 MG TABLET 200 MG PO (20:59)
[2023-11-05] MEDS: Doxazosin Mesylate 1 MG TABLET 3 MG PO (21:00)
[2023-11-05] MEDS: Ibuprofen 600 MG TABLET PO (21:01)
[2023-11-05] MEDS: QUEtiapine Fumarate 50 MG TABLET PO (21:05)
[2023-11-06] MEDS: Omeprazole 20 MG CAPSULE.DR PO (06:43)
[2023-11-06 08:10] VITALS: BP 141/55; PULSE 54; RESP 14; TEMP 37.1; O2SAT 98
[2023-11-06] MEDS: Docusate Sodium 100 MG CAPSULE PO ×2 (08:51→21:07)
[2023-11-06] MEDS: Folic Acid 1 MG TABLET PO (08:52)
[2023-11-06] MEDS: Gabapentin 300 MG CAPSULE PO ×3 (08:52→21:05)
[2023-11-06] MEDS: Thiamine HCL 100 MG TABLET 50 MG PO (08:52)
[2023-11-06] MEDS: Venlafaxine HCl ER 75 MG CAP.ER.24H PO (08:52)
[2023-11-06] MEDS: Multivitamin TABLET 1 TAB PO (08:52)
[2023-11-06] MEDS: QUEtiapine Fumarate 50 MG TABLET PO ×2 (09:00→21:08)
--- NOTE | 2023-11-06 09:40 | P.CONGS_ITS ---
History of Present Illness Consult details Consult date: 11/06/23 Requesting physician: Anthony Patel Narrative: 57-year-old male patient presenting with complaints of pain in the perianal skin. He reports a prior history of infections in bilateral axilla which required incision and drainage. The current infection began several days ago but has increased in severity and is now causing severe pain. He denies any bleeding or discharge from the site. He denies any prior infections at this location. Review of Systems 2 Review of Systems: Yes all other systems are reviewed and are negative Constitutional: Constitutional: Denies chills, Denies fever(s), Denies headache(s), Denies poor appetite and Denies weakness ENT: Denies headache(s) Cardiovascular: Cardiovascular: Denies chest pain, Denies irregular heart rhythm, Denies palpitations and Denies dyspnea Respiratory: Respiratory: Denies cough, Denies excessive phlegm production and Denies dyspnea Gastrointestinal: Gastrointestinal: Denies abdominal pain, Denies bloating, Denies change in bowel habits, Denies constipation, Denies heartburn, Denies diarrhea, Denies nausea and Denies vomiting Genitourinary: Genitourinary: Denies difficulty urinating and Denies urinary frequency Musculoskeletal: Musculoskeletal: Denies back pain, Denies muscle weakness and Denies numbness Integumentary/Breasts: Skin/Breast: Denies changing lesions and Denies unusual bruising Neurologic: Denies headache(s), Denies numbness, Denies paresthesias and Denies weakness Psychiatric: Psychiatric: Denies anxiety and Denies depression Endocrine: Endocrine: Denies palpitations Hematologic/Lymphatic: Hematologic/Lymphatic: Denies lymphadenopathy [facility] Past Medical History Medical History (Updated 11/06/23 @ 09:43 by Norm Jean Baptiste MD) History of hepatitis C Hepatic cirrhosis MDD (major depressive disorder), recurrent episode, severe Cocaine use disorder Alcohol use disorder History of intravenous drug abuse GERD (gastroesophageal reflux disease) HTN (hypertension) Social History Social History Household Members: None Housing: Homeless Do you presently have visiting nurse or other home services: No Alcohol intake: current Alcohol type: hard liquor Patient Tobacco Use Status: Current everyday Tobacco user Tobacco use type: Cigarette Cigarette Packs Per Day: 1 Cigarettes Per Day: 20.0 Years Smoked: unknown Smoked in Last 30 Days: Yes e-Cigarette/Vaping Use: Never Used Frequency of e-Cigarette/Vaping Use: daily Patient Interested in Nicotine Replacement: No Patient Given Instructions on How to Stop Smoking: Yes (Pt does not want to stop) Date Education Initiated: 10/29/23 Second Hand Smoke Exposure: No Use of substances other than those prescribed or required for medical reasons: Yes Substance Use Type: Crack/Cocaine and Heroin Substance Use Frequency: Weekly Last Used Substance: Just Prior to Admission Last Used Substance Other:: cocaine, heroin Currently Displaying Signs/Symptoms of Drug Intoxication Withdrawal: No Any prior treatment program specific to substance use: Yes (2x at [place]) Advance Directives: No Advance Directives Information Provided: No Do you have thoughts of harming others: None Do you have a plan to hurt others: No Plan Recently lost weight without trying: No Nutrition Risks: No Nutritional Risk service: No Sexual orientation: Straight/Heterosexual Meds Allergies Allergy/AdvReac Type Severity Reaction Status Date / Time No Known Allergies Allergy Verified 10/05/23 19:50 Active Medications: Current Medications Acetaminophen (Acetaminophen 325 Mg Tablet) 650 mg PO Q6H PRN PRN Reason: Headache/Pain Mild Scale (1-3) Al Hydroxide/Mg Hydroxide (Magnesium Hydrox/Alum Hydrox 30 Ml Oral.Susp) 30 ml PO Q6H PRN PRN Reason: Heartburn/Nausea Last Admin: 10/30/23 13:12 Dose: 30 ml Calcium Carbonate (Calcium Carbonate 750 Mg Tab.Chew) 750 mg PO Q4H PRN PRN Reason: Heartburn Docusate Sodium (Docusate Sodium 100 Mg Capsule) 100 mg PO BID [facility] Last Admin: 11/06/23 08:51 Dose: 100 mg Doxazosin Mesylate (Doxazosin Mesylate 1 Mg Tablet) 3 mg PO BEDTIME [facility]; Protocol Last Admin: 11/05/23 21:00 Dose: 3 mg Folic Acid (Folic Acid 1 Mg Tablet) 1 mg PO DAILY [facility] Last Admin: 11/06/23 08:52 Dose: 1 mg Gabapentin (Gabapentin 300 Mg Capsule) 300 mg PO TID [facility] Last Admin: 11/06/23 08:52 Dose: 300 mg Ibuprofen (Ibuprofen 600 Mg Tablet) 600 mg PO Q6H PRN PRN Reason: Pain, Moderate(Pain Scale 4-6) Last Admin: 11/05/23 21:01 Dose: 600 mg Lidocaine (Lidocaine 4 % Patch Adh..Patch) 1 patch TRANSDERMA DAILY [facility]; Protocol Last Admin: 11/05/23 10:06 Dose: Not Given Lisinopril (Lisinopril 5 Mg Tablet) 5 mg PO DAILY [facility]; Protocol Last Admin: 11/04/23 09:38 Dose: 5 mg Magnesium Hydroxide (Milk Of Magnesia 30 Ml Oral.Susp) 30 ml PO DAILY PRN PRN Reason: Constipation Multivitamins/Vitamin C (Multivitamin Tablet) 1 tab PO DAILY [facility] Last Admin: 11/06/23 08:52 Dose: 1 tab Nicotine Polacrilex (Nicotine Polacrilex 2 Mg Gum) 4 mg BUCCAL Q2H PRN PRN Reason: Nicotine Cravings Omeprazole (Omeprazole 20 Mg Capsule.Dr) 20 mg PO DAILY@0630 [facility] Last Admin: 11/06/23 06:43 Dose: 20 mg Quetiapine Fumarate (Quetiapine Fumarate 50 Mg Tablet) 50 mg PO Q6H PRN PRN Reason: Agitation Last Admin: 11/06/23 09:00 Dose: 50 mg Thiamine HCl (Thiamine Hcl 100 Mg Tablet) 50 mg PO DAILY [facility] Last Admin: 11/06/23 08:52 Dose: 50 mg Trazodone HCl (Trazodone Hcl 100 Mg Tablet) 200 mg PO BEDTIME [facility] Last Admin: 11/05/23 20:59 Dose: 200 mg Venlafaxine HCl (Venlafaxine Hcl Er 75 Mg Cap.Er.24h) 75 mg PO DAILY [facility] Last Admin: 11/06/23 08:52 Dose: 75 mg Home Medications ?Medication ?Instructions ?Recorded ?Confirmed ?Last Taken ?Type hydroxyzine pamoate 50 mg capsule 50 mg PO Q6H PRN anxiety 10/05/23 10/30/23 Unknown History lisinopril 5 mg tablet 5 mg PO DAILY 10/05/23 10/30/23 Unknown History prazosin 1 mg capsule 1 mg PO BEDTIME 10/05/23 10/30/23 Unknown History quetiapine 50 mg tablet 50 mg PO BID PRN Agitation 10/05/23 10/30/23 Unknown History clonidine HCl 0.1 mg tablet 0.1 mg PO BID PRN Anxiety 10/30/23 10/30/23 Unknown History pantoprazole 40 mg PO DAILY 10/30/23 10/30/23 Unknown History trazodone 100 mg tablet 100 mg PO BEDTIME 10/30/23 10/30/23 Unknown History Physical Exam 2 Vital Signs: Vital Signs: Last Vital Signs Temp 98.8 F 11/06/23 08:10 Pulse 54 11/06/23 08:10 Resp 14 11/06/23 08:10 BP 141/55 H 11/06/23 08:10 Pulse Ox 98 11/06/23 08:10 O2 Del Method Room Air 11/06/23 08:10 BMI result Body Mass Index 27.6 Const: General: cooperative and no acute distress Nutritional Appearance: w ell nourished Orientation/consciousness: patient oriented x3 Limitations: no limitations HEENT: Head: Yes normocephalic and Yes atraumatic Ears: hearing grossly normal bilaterally Resp: Effort & Inspection: normal respiratory effort, no audible wheezes, no cough and no respiratory distress Cardio: Jugular venous distension: no JVD GI: Other: Soft and nondistended. Anal examination reveals a tender fluctuant collection in the left lateral perianal wall consistent with a perirectal abscess. No other ulceration or hemorrhoid is identified. Anoscopic examination was deferred. Inspection: Yes normal to inspection Skin: Other: Warm, dry, no rash Neuro: General: patient oriented x3 Extrem: General: Yes no clubbing, cyanosis or edema Results Labs 10/30/23 07:35 Labs: All other labs normal. Assessment and Plan (1) Perirectal abscess: Status: Acute Plan 57-year-old male patient presenting with complaints of pain in the perianal skin found to have a large perirectal abscess. No bleeding or discharge is noted at this time. On examination there is a large perirectal abscess involving the left perianal wall. I recommended incision and drainage. The findings were reviewed in detail with the patient via foreign language interpreter. After discussion of the procedure, risks, and alternatives, he consented to an incision and drainage of the perirectal abscess. This was performed at the bedside using the procedure room on M3. A large purulence collection was drained. The wounds were packed with quarter-inch Nu Gauze. Patient will need to perform Sitz baths or warm tub soaks for 15-20 minutes, at least 4 times daily. He should continue to apply dry sterile dressings following the soaks or after bowel movement. Procedures Date of Service Date of Service: 11/06/23 Abscess I/D Consent for Procedure: Elective - informed consent obtained Site: nany-rectal Side (if applicable): left Sedation/analgesia: none Anesthetic used: with epi Technique: incised with #11 blade Amount of fluid (mL): 15 Irrigation: Yes Packing used?: plain (1/4 inch) Additional comments: Patient tolerated the procedure well. Dry sterile dressings applied.
--- NOTE | 2023-11-06 11:13 | HO.PSYCHPN ---
Subjective Subjective Date of Service: 11/06/23 Reason For Visit: Unspecified depressive and anxiety Subjective Notes: Conditional Voluntary Interim History: Patient was seen and discussed in rounds today. Records and plans were reviewed. Was seen with the help of an truck car and bus cleaner. He has been stable with no acute signs of psychosis. He is visible but not very social and I am sure the language barrier is an issue. Records were reviewed. He is complaining of a pussy hemorrhoids and under arm lesions of similar complaints. A surgery consult was put in and was seen to incise the lesions. No other complaints. No other changes were made Review of Systems Review of Systems Pussy lesions under arm and hemorrhoids Yes all other systems are reviewed and are negative Mental Status Exam Mental Status Exam Narrative: In today's visit he is alert, pleasant and interactive. Normal speech. Good eye contact. Affect is constricted. No acute signs of psychosis. No SI. No dangerous behaviors. Cognitively could not be assessed but a intact on gross observation. Judgment is intact Diagnostics Vital Signs (24Hr): Vital Signs - 24 hr 11/05/23 12:00 11/05/23 12:00 11/05/23 12:16 Temperature Pulse Rate 67 80 72 Respiratory Rate Blood Pressure 130/75 104/65 116/77 Pulse Oximetry Oxygen Delivery Method 11/05/23 16:00 11/05/23 16:00 11/05/23 16:00 Temperature Pulse Rate 60 64 62 Respiratory Rate Blood Pressure 137/70 120/60 125/67 Pulse Oximetry Oxygen Delivery Method 11/05/23 20:00 11/05/23 20:00 11/05/23 21:00 Temperature 98.8 F Pulse Rate 61 60 Respiratory Rate 16 Blood Pressure 174/84 H 174/84 H 174/84 H Pulse Oximetry 98 Oxygen Delivery Method Room Air 11/06/23 08:10 Temperature 98.8 F Pulse Rate 54 Respiratory Rate 14 Blood Pressure 141/55 H Pulse Oximetry 98 Oxygen Delivery Method Room Air BMI result Body Mass Index 27.6 Labs 10/30/23 07:35 Medications Medications Current Medications Acetaminophen (Acetaminophen 325 Mg Tablet) 650 mg PO Q6H PRN PRN Reason: Headache/Pain Mild Scale (1-3) Al Hydroxide/Mg Hydroxide (Magnesium Hydrox/Alum Hydrox 30 Ml Oral.Susp) 30 ml PO Q6H PRN PRN Reason: Heartburn/Nausea Last Admin: 10/30/23 13:12 Dose: 30 ml Calcium Carbonate (Calcium Carbonate 750 Mg Tab.Chew) 750 mg PO Q4H PRN PRN Reason: Heartburn Docusate Sodium (Docusate Sodium 100 Mg Capsule) 100 mg PO BID [facility] Last Admin: 11/06/23 08:51 Dose: 100 mg Doxazosin Mesylate (Doxazosin Mesylate 1 Mg Tablet) 3 mg PO BEDTIME [facility]; Protocol Last Admin: 11/05/23 21:00 Dose: 3 mg Folic Acid (Folic Acid 1 Mg Tablet) 1 mg PO DAILY [facility] Last Admin: 11/06/23 08:52 Dose: 1 mg Gabapentin (Gabapentin 300 Mg Capsule) 300 mg PO TID [facility] Last Admin: 11/06/23 08:52 Dose: 300 mg Ibuprofen (Ibuprofen 600 Mg Tablet) 600 mg PO Q6H PRN PRN Reason: Pain, Moderate(Pain Scale 4-6) Last Admin: 11/05/23 21:01 Dose: 600 mg Lidocaine (Lidocaine 4 % Patch Adh..Patch) 1 patch TRANSDERMA DAILY [facility]; Protocol Last Admin: 11/06/23 09:57 Dose: Not Given Lisinopril (Lisinopril 5 Mg Tablet) 5 mg PO DAILY [facility]; Protocol Last Admin: 11/04/23 09:38 Dose: 5 mg Magnesium Hydroxide (Milk Of Magnesia 30 Ml Oral.Susp) 30 ml PO DAILY PRN PRN Reason: Constipation Multivitamins/Vitamin C (Multivitamin Tablet) 1 tab PO DAILY [facility] Last Admin: 11/06/23 08:52 Dose: 1 tab Nicotine Polacrilex (Nicotine Polacrilex 2 Mg Gum) 4 mg BUCCAL Q2H PRN PRN Reason: Nicotine Cravings Omeprazole (Omeprazole 20 Mg Capsule.Dr) 20 mg PO DAILY@0630 [facility] Last Admin: 11/06/23 06:43 Dose: 20 mg Quetiapine Fumarate (Quetiapine Fumarate 50 Mg Tablet) 50 mg PO Q6H PRN PRN Reason: Agitation Last Admin: 11/06/23 09:00 Dose: 50 mg Thiamine HCl (Thiamine Hcl 100 Mg Tablet) 50 mg PO DAILY [facility] Last Admin: 11/06/23 08:52 Dose: 50 mg Trazodone HCl (Trazodone Hcl 100 Mg Tablet) 200 mg PO BEDTIME [facility] Last Admin: 11/05/23 20:59 Dose: 200 mg Venlafaxine HCl (Venlafaxine Hcl Er 75 Mg Cap.Er.24h) 75 mg PO DAILY [facility] Last Admin: 11/06/23 08:52 Dose: 75 mg Allergies Allergies Allergy/AdvReac Type Severity Reaction Status Date / Time No Known Allergies Allergy Verified 10/05/23 19:50 Assessment & Plan Assessment & Plan (1) Perirectal abscess: Status: Acute Code(s): K61.1 - Rectal abscess Plan 57-year-old male patient presenting with complaints of pain in the perianal skin found to have a large perirectal abscess. No bleeding or discharge is noted at this time. On examination there is a large perirectal abscess involving the left perianal wall. I recommended incision and drainage. The findings were reviewed in detail with the patient via truck car and bus cleaner. After discussion of the procedure, risks, and alternatives, he consented to an incision and drainage of the perirectal abscess. This was performed at the bedside using the procedure room on M3. A large purulence collection was drained. The wounds were packed with quarter-inch Nu Gauze. Patient will need to perform Sitz baths or warm tub soaks for 15-20 minutes, at least 4 times daily. He should continue to apply dry sterile dressings following the soaks or after bowel movement. 11/05: Continue current treatment and plan. Surgery consult was put in Reason for continued inpatient stay Substantial Risk for: med/psych decompensation Time Spent With Patient Time: Total time managing care of this patient today ____ minutes.
--- NOTE | 2023-11-06 16:28 | PC.NURSE ---
sitz bath at 1430 x 20 minutes in tub on S1. Old dressing was soaked with sanguinous drainage. New dry sterile dressing applied following bath. Pt tolerated bath and dressing change well.
[2023-11-06 20:00] VITALS: BP 128/85; PULSE 70; RESP 16; TEMP 37.2; O2SAT 98
[2023-11-06] MEDS: traZODone HCL 100 MG TABLET 200 MG PO (21:04)
[2023-11-06] MEDS: Ibuprofen 600 MG TABLET PO (21:05)
[2023-11-06 21:06] VITALS: BP 128/85
[2023-11-06] MEDS: Doxazosin Mesylate 1 MG TABLET 3 MG PO (21:06)
[2023-11-07 07:42] VITALS: BP 129/78; PULSE 60; RESP 14; TEMP 36.9; O2SAT 100
--- NOTE | 2023-11-07 08:54 | HO.PSYCHPN ---
Subjective Subjective Date of Service: 11/07/23 Reason For Visit: Unspecified depressive and anxiety Subjective Notes: Conditional Voluntary Interim History: Patient was seen and discussed in rounds today. Records and plans were reviewed. He was seen yesterday by the surgeon for the excision of the lesions. He is more comfortable. Eating and sleeping adequately. No overt delusions. Very little social interaction. No behavioral problems. No complaints or side effects. No changes were made today Review of Systems Review of Systems Yes all other systems are reviewed and are negative Mental Status Exam Mental Status Exam Narrative: In today's visit he is alert, pleasant and interactive. Normal speech. Good eye contact. Affect is constricted. No acute signs of psychosis. No SI. No dangerous behaviors. Cognitively could not be assessed but a intact on gross observation. Judgment is intact Diagnostics Vital Signs (24Hr): Vital Signs - 24 hr 11/06/23 20:00 11/06/23 21:06 11/07/23 07:42 Temperature 99 F 98.5 F Pulse Rate 70 60 Respiratory Rate 16 14 Blood Pressure 128/85 128/85 129/78 Pulse Oximetry 98 100 Oxygen Delivery Method Room Air Room Air BMI result Body Mass Index 27.6 Labs 10/30/23 07:35 Medications Medications Current Medications Acetaminophen (Acetaminophen 325 Mg Tablet) 650 mg PO Q6H PRN PRN Reason: Headache/Pain Mild Scale (1-3) Al Hydroxide/Mg Hydroxide (Magnesium Hydrox/Alum Hydrox 30 Ml Oral.Susp) 30 ml PO Q6H PRN PRN Reason: Heartburn/Nausea Last Admin: 10/30/23 13:12 Dose: 30 ml Calcium Carbonate (Calcium Carbonate 750 Mg Tab.Chew) 750 mg PO Q4H PRN PRN Reason: Heartburn Docusate Sodium (Docusate Sodium 100 Mg Capsule) 100 mg PO BID [facility] Last Admin: 11/06/23 21:07 Dose: 100 mg Doxazosin Mesylate (Doxazosin Mesylate 1 Mg Tablet) 3 mg PO BEDTIME [facility]; Protocol Last Admin: 11/06/23 21:06 Dose: 3 mg Folic Acid (Folic Acid 1 Mg Tablet) 1 mg PO DAILY [facility] Last Admin: 11/06/23 08:52 Dose: 1 mg Gabapentin (Gabapentin 300 Mg Capsule) 300 mg PO TID [facility] Last Admin: 11/06/23 21:05 Dose: 300 mg Ibuprofen (Ibuprofen 600 Mg Tablet) 600 mg PO Q6H PRN PRN Reason: Pain, Moderate(Pain Scale 4-6) Last Admin: 11/06/23 21:05 Dose: 600 mg Lidocaine (Lidocaine 4 % Patch Adh..Patch) 1 patch TRANSDERMA DAILY [facility]; Protocol Last Admin: 11/06/23 09:57 Dose: Not Given Lisinopril (Lisinopril 5 Mg Tablet) 5 mg PO DAILY [facility]; Protocol Last Admin: 11/04/23 09:38 Dose: 5 mg Magnesium Hydroxide (Milk Of Magnesia 30 Ml Oral.Susp) 30 ml PO DAILY PRN PRN Reason: Constipation Multivitamins/Vitamin C (Multivitamin Tablet) 1 tab PO DAILY [facility] Last Admin: 11/06/23 08:52 Dose: 1 tab Nicotine Polacrilex (Nicotine Polacrilex 2 Mg Gum) 4 mg BUCCAL Q2H PRN PRN Reason: Nicotine Cravings Omeprazole (Omeprazole 20 Mg Capsule.Dr) 20 mg PO DAILY@0630 [facility] Last Admin: 11/06/23 06:43 Dose: 20 mg Quetiapine Fumarate (Quetiapine Fumarate 50 Mg Tablet) 50 mg PO Q6H PRN PRN Reason: Agitation Last Admin: 11/06/23 21:08 Dose: 50 mg Thiamine HCl (Thiamine Hcl 100 Mg Tablet) 50 mg PO DAILY [facility] Last Admin: 11/06/23 08:52 Dose: 50 mg Trazodone HCl (Trazodone Hcl 100 Mg Tablet) 200 mg PO BEDTIME [facility] Last Admin: 11/06/23 21:04 Dose: 200 mg Venlafaxine HCl (Venlafaxine Hcl Er 75 Mg Cap.Er.24h) 75 mg PO DAILY [facility] Last Admin: 11/06/23 08:52 Dose: 75 mg Allergies Allergies Allergy/AdvReac Type Severity Reaction Status Date / Time No Known Allergies Allergy Verified 10/05/23 19:50 Assessment & Plan Assessment & Plan (1) Perirectal abscess: Status: Acute Code(s): K61.1 - Rectal abscess Plan 57-year-old male patient presenting with complaints of pain in the perianal skin found to have a large perirectal abscess. No bleeding or discharge is noted at this time. On examination there is a large perirectal abscess involving the left perianal wall. I recommended incision and drainage. The findings were reviewed in detail with the patient via staff interpreter. After discussion of the procedure, risks, and alternatives, he consented to an incision and drainage of the perirectal abscess. This was performed at the bedside using the procedure room on M3. A large purulence collection was drained. The wounds were packed with quarter-inch Nu Gauze. Patient will need to perform Sitz baths or warm tub soaks for 15-20 minutes, at least 4 times daily. He should continue to apply dry sterile dressings following the soaks or after bowel movement. 11/05: Continue current treatment and plan. Surgery consult was put in Reason for continued inpatient stay Substantial Risk for: rapid decompensation Time Spent With Patient Time: Total time managing care of this patient today ____ minutes.
[2023-11-07 09:02] VITALS: BP 128/76
[2023-11-07] MEDS: lisinopriL 5 MG TABLET PO (09:02)
[2023-11-07] MEDS: Docusate Sodium 100 MG CAPSULE PO ×2 (09:02→21:58)
[2023-11-07] MEDS: Multivitamin TABLET 1 TAB PO (09:02)
[2023-11-07] MEDS: Venlafaxine HCl ER 75 MG CAP.ER.24H PO (09:02)
[2023-11-07] MEDS: Gabapentin 300 MG CAPSULE PO ×3 (09:02→21:59)
[2023-11-07] MEDS: Thiamine HCL 100 MG TABLET 50 MG PO (09:02)
[2023-11-07] MEDS: Omeprazole 20 MG CAPSULE.DR PO (09:02)
[2023-11-07] MEDS: Folic Acid 1 MG TABLET PO (09:02)
[2023-11-07] MEDS: Ibuprofen 600 MG TABLET PO (15:03)
[2023-11-07 21:55] VITALS: BP 156/69; PULSE 65; RESP 16; TEMP 35.9; O2SAT 98
[2023-11-07] MEDS: traZODone HCL 100 MG TABLET 200 MG PO (21:58)
[2023-11-07 21:59] VITALS: BP 156/69
[2023-11-07] MEDS: QUEtiapine Fumarate 50 MG TABLET PO (21:59)
[2023-11-07] MEDS: Doxazosin Mesylate 1 MG TABLET 3 MG PO (21:59)
[2023-11-08] MEDS: Omeprazole 20 MG CAPSULE.DR PO (06:43)
[2023-11-08 07:46] VITALS: BP 127/68; PULSE 56; RESP 14; TEMP 35.9; O2SAT 98
[2023-11-08 08:56] VITALS: BP 127/68
[2023-11-08] MEDS: lisinopriL 5 MG TABLET PO (08:56)
[2023-11-08] MEDS: Gabapentin 300 MG CAPSULE PO (08:56)
[2023-11-08] MEDS: Multivitamin TABLET 1 TAB PO (08:56)
[2023-11-08] MEDS: Docusate Sodium 100 MG CAPSULE PO ×2 (08:56→21:11)
[2023-11-08] MEDS: Thiamine HCL 100 MG TABLET 50 MG PO (08:57)
[2023-11-08] MEDS: Folic Acid 1 MG TABLET PO (08:57)
[2023-11-08] MEDS: Venlafaxine HCl ER 75 MG CAP.ER.24H PO (08:57)
[2023-11-08] MEDS: Gabapentin 300 MG CAPSULE 600 MG PO ×2 (14:24→21:10)
--- NOTE | 2023-11-08 16:24 | HO.PSYCHPN ---
Subjective Subjective Date of Service: 11/08/23 Reason For Visit: Unspecified depressive and anxiety Interim History: seen with CHILANGO Montanez and home appraiser. calm, cooperative. reviewed developments over w/e re I&D of perirectal abscess. agreeable to increase gabapentin to 600 TID for neuropathic pain. planning to discharge to home on ; reports he spoke with his family members and they are willing to take him back provided he stops drinking, reports he was only treated the way he described due to his drinking. per staff, not attending groups. anx/dep improved. no AH/VH. perirectal abscess drained, had visit from family members. Mental Status Exam Mental Status Exam Narrative: In today's visit he is alert, pleasant and interactive. Normal speech. Good eye contact. Affect is constricted. No acute signs of psychosis. No SI. No dangerous behaviors. Cognitively could not be assessed but a intact on gross observation. Judgment is intact Diagnostics Vital Signs (24Hr): Vital Signs - 24 hr 11/07/23 21:55 11/07/23 21:59 11/08/23 07:46 Temperature 96.6 F L 96.7 F L Pulse Rate 65 56 Respiratory Rate 16 14 Blood Pressure 156/69 H 156/69 H 127/68 Pulse Oximetry 98 98 Oxygen Delivery Method Room Air Room Air 11/08/23 08:56 Temperature Pulse Rate Respiratory Rate Blood Pressure 127/68 Pulse Oximetry Oxygen Delivery Method BMI result Body Mass Index 27.6 Labs 10/30/23 07:35 Medications Medications Current Medications Acetaminophen (Acetaminophen 325 Mg Tablet) 650 mg PO Q6H PRN PRN Reason: Headache/Pain Mild Scale (1-3) Al Hydroxide/Mg Hydroxide (Magnesium Hydrox/Alum Hydrox 30 Ml Oral.Susp) 30 ml PO Q6H PRN PRN Reason: Heartburn/Nausea Last Admin: 10/30/23 13:12 Dose: 30 ml Calcium Carbonate (Calcium Carbonate 750 Mg Tab.Chew) 750 mg PO Q4H PRN PRN Reason: Heartburn Docusate Sodium (Docusate Sodium 100 Mg Capsule) 100 mg PO BID [facility] Last Admin: 11/08/23 08:56 Dose: 100 mg Doxazosin Mesylate (Doxazosin Mesylate 1 Mg Tablet) 3 mg PO BEDTIME [facility]; Protocol Last Admin: 11/07/23 21:59 Dose: 3 mg Folic Acid (Folic Acid 1 Mg Tablet) 1 mg PO DAILY [facility] Last Admin: 11/08/23 08:57 Dose: 1 mg Gabapentin (Gabapentin 300 Mg Capsule) 600 mg PO TID [facility] Last Admin: 11/08/23 14:24 Dose: 600 mg Ibuprofen (Ibuprofen 600 Mg Tablet) 600 mg PO Q6H PRN PRN Reason: Pain, Moderate(Pain Scale 4-6) Last Admin: 11/07/23 15:03 Dose: 600 mg Lidocaine (Lidocaine 4 % Patch Adh..Patch) 1 patch TRANSDERMA DAILY [facility]; Protocol Last Admin: 11/08/23 10:25 Dose: Not Given Lisinopril (Lisinopril 5 Mg Tablet) 5 mg PO DAILY [facility]; Protocol Last Admin: 11/08/23 08:56 Dose: 5 mg Magnesium Hydroxide (Milk Of Magnesia 30 Ml Oral.Susp) 30 ml PO DAILY PRN PRN Reason: Constipation Multivitamins/Vitamin C (Multivitamin Tablet) 1 tab PO DAILY [facility] Last Admin: 11/08/23 08:56 Dose: 1 tab Nicotine Polacrilex (Nicotine Polacrilex 2 Mg Gum) 4 mg BUCCAL Q2H PRN PRN Reason: Nicotine Cravings Omeprazole (Omeprazole 20 Mg Capsule.Dr) 20 mg PO DAILY@0630 [facility] Last Admin: 11/08/23 06:43 Dose: 20 mg Quetiapine Fumarate (Quetiapine Fumarate 50 Mg Tablet) 50 mg PO Q6H PRN PRN Reason: Agitation Last Admin: 11/07/23 21:59 Dose: 50 mg Thiamine HCl (Thiamine Hcl 100 Mg Tablet) 50 mg PO DAILY [facility] Last Admin: 11/08/23 08:57 Dose: 50 mg Trazodone HCl (Trazodone Hcl 100 Mg Tablet) 200 mg PO BEDTIME [facility] Last Admin: 11/07/23 21:58 Dose: 200 mg Venlafaxine HCl (Venlafaxine Hcl Er 75 Mg Cap.Er.24h) 75 mg PO DAILY [facility] Last Admin: 11/08/23 08:57 Dose: 75 mg Allergies Allergies Allergy/AdvReac Type Severity Reaction Status Date / Time No Known Allergies Allergy Verified 10/05/23 19:50 Assessment & Plan Assessment & Plan (1) Perirectal abscess: Status: Acute Code(s): K61.1 - Rectal abscess Plan 57-year-old male patient presenting with complaints of pain in the perianal skin found to have a large perirectal abscess. No bleeding or discharge is noted at this time. On examination there is a large perirectal abscess involving the left perianal wall. I recommended incision and drainage. The findings were reviewed in detail with the patient via home appraiser. After discussion of the procedure, risks, and alternatives, he consented to an incision and drainage of the perirectal abscess. This was performed at the bedside using the procedure room on M3. A large purulence collection was drained. The wounds were packed with quarter-inch Nu Gauze. Patient will need to perform Sitz baths or warm tub soaks for 15-20 minutes, at least 4 times daily. He should continue to apply dry sterile dressings following the soaks or after bowel movement. 11/05: Continue current treatment and plan. Surgery consult was put in 11/06: perirectal abscess drained, gauze removed today. discharge to home weds. increase gabapentin to 600 TID for neuropathic pain. otherwise pt feeling quite well with very much improved anx/dep and resolved AVH. Reason for continued inpatient stay Substantial Risk for: inability to function and rapid decompensation Time Spent With Patient Time: Total time managing care of this patient today __35__ minutes.
[2023-11-08 20:20] VITALS: BP 136/81; PULSE 72; RESP 16; TEMP 37.1; O2SAT 98
[2023-11-08] MEDS: Doxazosin Mesylate 1 MG TABLET 3 MG PO (21:10)
[2023-11-08] MEDS: traZODone HCL 100 MG TABLET 200 MG PO (21:10)
[2023-11-09] MEDS: Omeprazole 20 MG CAPSULE.DR PO (06:45)
[2023-11-09 07:47] VITALS: BP 122/76; PULSE 59; RESP 14; TEMP 36.1; O2SAT 98
--- NOTE | 2023-11-09 08:07 | P.PNGS_ITS ---
Subjective Subjective Date of Service: 11/08/23 Interval history: Late entry: Patient seen for wound check following incision and drainage perirectal abscess. Patient reports feeling much improved. He reports a large amount of discharge on Wednesday but not much discharge currently. Physical Exam 2 Vital Signs: Vital Signs: Last Vital Signs Temp 96.9 F 11/09/23 07:47 Pulse 59 11/09/23 07:47 Resp 14 11/09/23 07:47 BP 122/76 11/09/23 07:47 Pulse Ox 98 11/09/23 07:47 O2 Del Method Room Air 11/09/23 07:47 BMI result Body Mass Index 27.6 Const: General: no acute distress GI: Other: Soft and nondistended. Rectal examination reveals no further erythema. Packing was removed and no discharge and will be expressed. Minimally tender. Dry pad applied. Skin: Other: Warm, dry, no rash Objective Data Active Medications Acetaminophen (Acetaminophen 325 Mg Tablet) 650 mg PO Q6H PRN PRN Reason: Headache/Pain Mild Scale (1-3) Al Hydroxide/Mg Hydroxide (Magnesium Hydrox/Alum Hydrox 30 Ml Oral.Susp) 30 ml PO Q6H PRN PRN Reason: Heartburn/Nausea Last Admin: 10/30/23 13:12 Dose: 30 ml Documented By: PRASAD Calcium Carbonate (Calcium Carbonate 750 Mg Tab.Chew) 750 mg PO Q4H PRN PRN Reason: Heartburn Docusate Sodium (Docusate Sodium 100 Mg Capsule) 100 mg PO BID [facility] Last Admin: 11/08/23 21:11 Dose: 100 mg Documented By: CARI Doxazosin Mesylate (Doxazosin Mesylate 1 Mg Tablet) 3 mg PO BEDTIME [facility]; Protocol Last Admin: 11/08/23 21:10 Dose: 3 mg Documented By: CARI Folic Acid (Folic Acid 1 Mg Tablet) 1 mg PO DAILY [facility] Last Admin: 11/08/23 08:57 Dose: 1 mg Documented By: ALYSSA Gabapentin (Gabapentin 300 Mg Capsule) 600 mg PO TID [facility] Last Admin: 11/08/23 21:10 Dose: 600 mg Documented By: CARI Ibuprofen (Ibuprofen 600 Mg Tablet) 600 mg PO Q6H PRN PRN Reason: Pain, Moderate(Pain Scale 4-6) Last Admin: 11/07/23 15:03 Dose: 600 mg Documented By: MARÍA Lidocaine (Lidocaine 4 % Patch Adh..Patch) 1 patch TRANSDERMA DAILY [facility]; Protocol Last Admin: 11/08/23 10:25 Dose: Not Given Documented By: ALYSSA Non-Admin Reason: Patient Refused Lisinopril (Lisinopril 5 Mg Tablet) 5 mg PO DAILY [facility]; Protocol Last Admin: 11/08/23 08:56 Dose: 5 mg Documented By: ALYSSA Magnesium Hydroxide (Milk Of Magnesia 30 Ml Oral.Susp) 30 ml PO DAILY PRN PRN Reason: Constipation Multivitamins/Vitamin C (Multivitamin Tablet) 1 tab PO DAILY [facility] Last Admin: 11/08/23 08:56 Dose: 1 tab Documented By: ALYSSA Nicotine Polacrilex (Nicotine Polacrilex 2 Mg Gum) 4 mg BUCCAL Q2H PRN PRN Reason: Nicotine Cravings Omeprazole (Omeprazole 20 Mg Capsule.Dr) 20 mg PO DAILY@0630 [facility] Last Admin: 11/09/23 06:45 Dose: 20 mg Documented By: GWENDOLYN Quetiapine Fumarate (Quetiapine Fumarate 50 Mg Tablet) 50 mg PO Q6H PRN PRN Reason: Agitation Last Admin: 11/07/23 21:59 Dose: 50 mg Documented By: HESHAM Thiamine HCl (Thiamine Hcl 100 Mg Tablet) 50 mg PO DAILY [facility] Last Admin: 11/08/23 08:57 Dose: 50 mg Documented By: ALYSSA Trazodone HCl (Trazodone Hcl 100 Mg Tablet) 200 mg PO BEDTIME [facility] Last Admin: 11/08/23 21:10 Dose: 200 mg Documented By: CARI Venlafaxine HCl (Venlafaxine Hcl Er 75 Mg Cap.Er.24h) 75 mg PO DAILY [facility] Last Admin: 11/08/23 08:57 Dose: 75 mg Documented By: ALYSSA Labs 10/30/23 07:35 Procedures Date of Service Date of Service: 11/09/23 Progress Note: A&P Assessment and plan (1) Perirectal abscess: Status: Acute Plan Pod 2 following incision and drainage perirectal abscess. Patient is much improved. Remaining packing is removed. Should continue Sitz baths 3-4 times daily for 20 minutes at a time especially after bowel movement. He should follow up my office in approximately 1 week for wound check. I recommended applying a clean pad following the warm soaks. The patient expressed understanding and agrees with the plan. Time Spent With Patient Time: Total time managing care of this patient today ____ minutes. Quality Stroke Does the patient have a stroke diagnosis?: No VTE Prior VTE?: No VTE Risk Level:: Surgical - low VTE Device Contraindication: Treatment Not Indicated VTE Drug Contraindication: Treatment Not Indicated
[2023-11-09 08:33] VITALS: BP 122/76
[2023-11-09] MEDS: Thiamine HCL 100 MG TABLET 50 MG PO (08:33)
[2023-11-09] MEDS: lisinopriL 5 MG TABLET PO (08:33)
[2023-11-09] MEDS: Venlafaxine HCl ER 75 MG CAP.ER.24H PO (08:33)
[2023-11-09] MEDS: Gabapentin 300 MG CAPSULE 600 MG PO ×3 (08:34→20:59)
[2023-11-09] MEDS: Folic Acid 1 MG TABLET PO (08:34)
[2023-11-09] MEDS: Docusate Sodium 100 MG CAPSULE PO ×2 (08:34→20:58)
[2023-11-09] MEDS: Multivitamin TABLET 1 TAB PO (08:34)
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
[2023-11-09] MEDS: Doxazosin Mesylate 1 MG TABLET 3 MG PO (20:59)
[2023-11-09 21:00] VITALS: BP 162/85; PULSE 65; RESP 16; TEMP 37; O2SAT 98
[2023-11-09] MEDS: traZODone HCL 100 MG TABLET 200 MG PO (21:00)
[2023-11-10] MEDS: Ibuprofen 600 MG TABLET PO (05:41)
[2023-11-10] MEDS: Omeprazole 20 MG CAPSULE.DR PO (05:41)
[2023-11-10 08:00] VITALS: BP 148/67; PULSE 65; RESP 14; TEMP 36.8; O2SAT 98
[2023-11-10] MEDS: Gabapentin 300 MG CAPSULE 600 MG PO (08:25)
[2023-11-10] MEDS: Docusate Sodium 100 MG CAPSULE PO (08:25)
[2023-11-10] MEDS: Thiamine HCL 100 MG TABLET 50 MG PO (08:25)
[2023-11-10] MEDS: Multivitamin TABLET 1 TAB PO (08:25)
[2023-11-10 08:27] VITALS: BP 148/67
[2023-11-10] MEDS: lisinopriL 5 MG TABLET PO (08:27)
[2023-11-10] MEDS: Venlafaxine HCl ER 75 MG CAP.ER.24H PO (08:28)
[2023-11-10] MEDS: Lidocaine 4 % Patch ADH..PATCH 1 PATCH TRANSDERMA (08:28)
[2023-11-10] MEDS: Folic Acid 1 MG TABLET PO (08:28)
== END 2023-11-10 11:45 | disposition home or self-care (01) | DRG 876 ==
PROVIDERS: Physician Assistant; Psychiatry & Neurology Psychiatry; Registered Nurse; Admitting Provider Psychiatry & Neurology Psychiatry; PCP Physician Assistant Medical; Visit Provider Psychiatry & Neurology Psychiatry
DX: F33.2 Major depressive disorder, recurrent severe without psychotic features (principal); R45.851 Suicidal ideations; K61.1 Rectal abscess; I10 Essential (primary) hypertension; R45.850 Homicidal ideations; K21.9 Gastro-esophageal reflux disease without esophagitis; F14.10 Cocaine abuse, uncomplicated; F10.90 Alcohol use, unspecified, uncomplicated; F17.210 Nicotine dependence, cigarettes, uncomplicated; B19.20 Unspecified viral hepatitis C without hepatic coma; Z20.822 Contact with and (suspected) exposure to COVID-19; Z91.148 Patient's other noncompliance with medication regimen for other reason; Z71.6 Tobacco abuse counseling; Z79.899 Other long term (current) drug therapy
CPT/HCPCS: 36415; 80053; 80061; 86704; 86705; 86706; 86803; 87340; 87389; 87522; 87633; 93005

== ENCOUNTER 2023-10-29 18:20 | Outpatient (BNV) | payer OTHER, MEDICAID, SELFPAY | END 2023-11-05 08:00 | PROVIDERS: Admitting Provider Psychiatry & Neurology Psychiatry; PCP Physician Assistant Medical; Visit Provider Internal Medicine Cardiovascular Disease | DX: R00.1 Bradycardia, unspecified (principal) | CPT/HCPCS: 93010 ==

== ENCOUNTER → 2023-10-29 18:20 | Outpatient (BNV) | payer OTHER, MEDICAID, SELFPAY | PROVIDERS: Admitting Provider Psychiatry & Neurology Psychiatry; PCP Physician Assistant Medical; Visit Provider Physician Assistant | DX: Z02.2 Encounter for examination for admission to residential institution (principal) | CPT/HCPCS: 99429 ==

== ENCOUNTER → 2023-10-29 18:20 | Outpatient (BNV) | payer OTHER, SELFPAY | PROVIDERS: Admitting Provider Psychiatry & Neurology Psychiatry; PCP Physician Assistant Medical; Visit Provider Registered Nurse | DX: F33.2 Major depressive disorder, recurrent severe without psychotic features (principal); F10.90 Alcohol use, unspecified, uncomplicated; K61.1 Rectal abscess | CPT/HCPCS: 90792; 99231; 99232; 99239; 99499 ==

== ENCOUNTER → 2023-10-29 18:20 | Outpatient (BNV) | payer OTHER, MEDICAID, SELFPAY | PROVIDERS: Admitting Provider Psychiatry & Neurology Psychiatry; PCP Physician Assistant Medical; Visit Provider Surgery | DX: K61.1 Rectal abscess (principal) | CPT/HCPCS: 46040; 99024; 99222 ==